=== PATIENT | female | born 1995 ===

== ENCOUNTER 2024-02-02 07:22 | Inpatient (IN) ==
[2024-02-02] MEDS ORDERED: LACTATED RINGER'S 1,000 ML IV PRN (08:39)
[2024-02-02] MEDS ORDERED: LIDOCAINE 1% LOCAL 20 ML VIAL INFIL PRN (08:39)
[2024-02-02] MEDS ORDERED: OXYTOCIN 30 UNITS/NSS 30 UNITS/500 ML BAG IV PRN (08:39)
--- NOTE | 2024-02-02 09:04 | History & Physical Report ---
Date of Service February 02, 2024 Assessment & Plan (1) Encounter for induction of labor: Present on Admission?: Yes Plan Admit to L and D Regular diet x 2 then NPO/IV Fluids CBC, CHEM 7 pain meds including epidural as the pt desires Cervidil placed PV for cervical ripening then consider Pitocin AROM as needed to augment labor Admission and Anticipated Discharge Date Admission Date: February 02, 2024 History of Present Illness Chief Complaint: IUP@ 38 weeks 4 days Induction of labor for gestational HTN Primary Care Provider: Adryan Cr MD Pt is 28 yr old G1 IUP at 38 weeks 4 days came in for IOL for Chronic HTN. Pt denies vaginal bleeding, leaking of fluid per vagina, head aches, blurry vision, epigastric pain etc. Reports good movement. Allergies Allergy/AdvReac Type Severity Reaction Status Date / Time No Known Allergies Allergy Verified 12/25/23 22:50 Home Medications Medication Instructions Recorded Confirmed Type aspirin 81 mg tablet,delayed 81 mg PO DAILY 11/15/23 02/02/24 History release magnesium 100 mg capsule 100 mg PO DAILY 11/15/23 02/02/24 History vit no.95-ferrous 1 tab PO DAILY 11/15/23 02/02/24 History fumarate 28 mg-folic acid 800 mcg tablet () Patient History Medical History Migraine Surgical History H/O lumpectomy 2012 History of tonsillectomy Family History Father History of bowel resection Hypertension Diabetes Grandmother (Paternal) Cancer Grandmother (Maternal) Cancer Social History Smoking Status: Never smoker Hx Alcohol Use: No Hx Substance Use: No Preferred Language: Latvian Communication Ability: Effective Inspector Assemblies And Installations Required: No Beliefs That Will Affect Care: None marital status: Current Living Situation: Spouse Other Information That Helps Us Care for You: No Feels Safe at Home: Yes Safety Concerns: Feels Safe At This Time Review of Systems All systems reviewed & are unremarkable except as noted in HPI & below as per Subjective / HPI as per Subjective / HPI as per Subjective / HPI Physical Exam Constitutional: WD/WN, vitals as above Respiratory: normal respiratory effort, lungs clear to auscultation Cardiovascular: RRR, no murmur, no edema Gastrointestinal (Abdomen): normal bowel sounds, soft, nontender, no hepatosplenomegaly Genitourinary: no vaginal lesions, no adnexal mass OB Exam Abdomen: + fundal height (38 cm) Manual OB Exam: + cervical dilation fingertip, + cervical effacement 20% and + station high OB Exam Monitor Tracing: + external FHT monitor used, + category I and + normal FHT variability 140s, Good variability, positive acceler ations Results & Data Vital Signs (Past 12 Hours) Vital Signs Temp Pulse Resp BP 02/02/24 07:55 36.6 C 20 02/02/24 07:43 90 132/91 Supervising Physician Co-Signing Physician Notes Dr. Kaylene Bush MD
[2024-02-02 09:05] LABS: Hematocrit (blood only) 38.7 % (37.0-47.0); Hemoglobin 13.2 g/dl (12.0-16.0); Mean Corpuscular Hemoglobin 31.1 pg (25.0-34.0); Mean Corpuscular Hgb Conc 34.1 g/dL (32.0-36.0); Mean Corpuscular Volume 91.3 fL (80.0-100.0); Mean Platelet Volume 10.7 fL (9.4-12.4); Platelet Count 220 K/uL (130-400); RDW Coefficient of Variation 13.3 % (11.5-14.5); RDW Standard Deviation 44.2 fL (36.4-46.3); Red Blood Count 4.24 M/uL (4.20-5.40); White Blood Count 10.47 K/ul (4.8-10.8)
[2024-02-02 09:20] LABS: Albumin Globulin Ratio 1.2 (0.9-2); Albumin Level 3.5 gm/dl (3.4-5.0); BUN Creatinine Ratio 6.9 (10-20); Bilirubin Direct 0.1 mg/dl (0-0.2); Bilirubin,Total 0.4 mg/dl (0.2-1.0); Calcium 8.8 mg/dl (8.6-10.3); Creatinine Clr Calc Pharmacy 193.1 ml/min; Est GFR (African American) 143.4 ml/min; Est GFR (Non-African American) 123.7 ml/min; Potassium 3.8 mmol/L (3.5-5.1); Total Protein 6.5 gm/dl (6.0-8.3)
[2024-02-02] MEDS: DINOPROSTONE 10 MG INSERT PV ONE (09:28)
[2024-02-02] MEDS: CALCIUM CARBONATE 500 MG CHEWABLE TAB PO PRN (10:52)
--- OUTSIDE RECORDS SUMMARY | 2024-02-02 15:57 | External Medical Summary | Summary of Care ---
Author Name Unknown Organization [facility] Address [address] [place] [address] Phone [phone] Care Team Providers Care Program Manufacturing Leader Name Role Phone Elizabeth RIVAS MD, Rolan Cardoso Primary Care Provider Reason for Visit * Reason Comments Return Visit Non Stress Test Encounter Details Date Type Department Care Team (Late st Contact Info) Description 01/31/2024 11:15 AM EDT Office Visit Gynecology/Obstetric s [facility] [address] [place] [address] Kristine Orellana CRNP [address] [place] [address] Igor Non Stress Tests [facility] [address] [place] [address] Encounter for supervision of normal first in third trimester*; Obesity in , antepartum; History of migraine during ; Rubella non-immune status, antepartum; Gestational hypertension without significant proteinuria in third trimester Allergies No known active allergiesdocumented as of this encounter (statuses as of 01/31/2024) Medications Medication Sig Dispensed Refills Start Date End Date Status 6.75-0.2 MG Oral Tablet Take by mouth. 0 Active Aspirin 81 MG Oral Tablet ChewableIndications:E ncounter for supervision of normal first in second trimester,Obesity in , antepartum Take 1 Tablet by mouth in the morning. 90 Tablet 2 08/17/2023 Active Magnesium 250 MG Oral Tablet Take 1 Tablet by mouth in the morning. 0 Active Breast PumpIndications:Charla malhotra for supervision of normal first in third trimester Pump daily while breast feeding 1 Each 0 12/25/2023 Active documented as of this encounter (statuses as of 01/31/2024) Active Problems Problem Noted Date Diagnosed Date Gestational hypertension without significant pro teinuria 01/31/2024 Rubella non-immune status, antepartum 07/20/2023 , normal first 07/19/2023 Obesity in , antepartum 07/19/2023 Overview: - Class 2: early GTT WNL - growth q4 wks, NST 37 weeks History of migraine during 07/19/2023 Sinus congestion 06/21/2023 Migraines 04/27/2022 Estimated Date of Delivery Comme nts Yes 02/10/2024 Based on last me nstrual period of 05/06/2023 (Exact Date) documented as of this encounter (statuses as of 01/31/2024) Resolved Problems Problem Noted Date Diagnosed Date Resolved Date Less than 8 weeks gestation of 06/21/2023 07/19/2023 documented as of this encounter (statuses as of 01/31/2024) Immunizations Name Administration Dates Next Due COVID-19 mRNA, LNP-s, No Pre serve, 2-Dose Series (Moderna) 03/22/2021,02/04/2021 DTaP Dipth/Tet/Acell Pertussis (Infanrix), Peds 06/10/1999,06/01/1995,07/04/1994,04/01,02/04/1994 HIB PRP-T, 4 dose (ActHib) 03/02/1995,,04/01/1994,02/04 HPV Vaccine, 4-Valent 12/08/2008,08/05/2008,05/2008 Hep A - Hepatitis A (ped/ado le, 1-18 Yrs) 12/08/2008,05/19/2008 Hepatitis B, 0-19 yrs 07/04/1994,01/04/1994,11/14 IPV - Polio Virus Vaccine (Inact) 1994,06/01/1994,04/01/1994,02/04 MMR - Measles/Mumps/Rubella Vaccine 06/03/1995,0 03/02/1995 Meningococcal MCV4O Conjugat e Vaccine (Menveo) 04/19/2012 Meningococcal MCV4P Conjugat e Vaccine (Menactra) 05/19/2008 PPD 03/08/2022,03/03/2021,02/09/2021 Seasonal Influenza, PF, 6 M & above, IM , (FluLaval or Fluzone) 08/17/2023,09/07/2022 Seasonal Influenza, Quadriva lent, No Preserve, IM 08/12/2021,08/24/2020 TD, Preservative Free 04/22/2021,05/30/2005 TDAP (age 10 and older)(Boostrix) 11/24/2023, Varicella Vaccine (Chicken Pox) 05/17/2007,02/06 documented as of this encounter Social History Tobacco Use Types Packs/Day Years Used Date Smoking Tobacco: Never Smokeless Tobacco: Never Alcohol Use Standard Drinks/Week Comments Not Currently 0 (1 standard drink = 0.6 oz pur e alcohol) socially PHQ-2 Answer Date Recorded PHQ-2 Score 0 12/23/2019 Hunger Vital Sign Answer Date Recorded Within the past 12 months, y ou worried that your food would run out before you got the money to buy more. Never true 07/19/20 23 Within the past 12 months, t he food you bought just didn't last and you didn't have money to get more. Never true 07/19/2023 Hamer Depression Scale Answer Date Recorded Hamer Depression Scale Total 4 12/25/2023 The thought of harming myself has occurred to me . Never 12/25/2023 Estimated Date of Delivery Comme nts Yes 02/10/2024 Based on last me nstrual period of 05/06/2023 (Exact Date) Sex and Gender Information Value Date Recorded Sex Assigned at Female 04/19/2019 8:47 AM EDT Gender Identity Female 04/19/2019 8:47 AM EDT Sexual Orientation Straight 04/19/2019 8: 47 AM EDT Job Start Date Occupation Industry Not on file Not on file Not on file documented as of this encounter Last Filed Vital Signs Vital Sign Reading Time Taken Comments Blood Pressure 130/88 01/31/2024 11:51 AM EDT Pulse - - Temperature - - Respiratory Rate - - Oxygen Saturation - - Inhaled Oxygen Concentration - - Weight - - Height - - Body Mass Index - - documented in this encounter Progress Notes * Esteban Kristine AltmanJHONATAN - 01/31/2024 11:17 AM EDT 38w4d Was seen in L&D on 01/28, reports BPs around 140s/90s at that time. BP yesterday slightly elevated at 140/88, 2+ protein in urine dip. Normal P/C ratio. Mild elevationin ALT, otherwise preE labs normal from yesterday. +MEJÍA today, not too bad; took 1g of Tylenol before coming into the office. No vision changes, epigastric/RUQ pain. Baby is moving well. Denies ctx, LOF, bleeding. Normal growth scan on 01/23. Discussed risks of GHTN, including uteroplacental insufficiency and preE. Induction is on 02/01; call sooner prn. Component Latest Ref Rng 01/30/2024 WBC 4.00 - 10.80 K/uL 9.68 RBC 3.85 - 5.15 M/uL 4.05 HGB 12.0 - 15.3 g/dL 12.5 HCT 36.0 - 45.2 % 37.2 MCV 81.5 - 97.5 fL 91.9 MCH 27.0 - 34.0 pg 30.9 MCHC 32.0 - 36.0 g/dL 33.6 RDW 11.5 - 15.5 % 13.5 PLT 140 - 400 K/uL 215 MPV 6.6 - 11.1 fL 10.8 BUN 6 - 20 mg/dL 5 (L) Creatinine 0.5 - 1.0 mg/dL 0.7 Estimated Glomerular Filtration Rate >=60 mL/min >90 Sodium 135 - 146 mmol/L 137 Potassium 3.5 - 5.1 mmol/L 4.0 Chloride 98 - 107 mmol/L 104 CO2 22 - 32 mmol/L 22 Anion Gap 7 - 15 mmol/L 11 Glucose 70 - 120 mg/dL 83 Calcium 8.4 - 10.2 mg/dL 9.3 Albumin 3.8 - 5.0 g/dL 3.4 (L) AST 10 - 35 U/L 25 Alkaline Phosphatase 35 - 130 U/L 163 (H) ALT 10 - 35 U/L 37 (H) Bilirubin, Total <=1.2 mg/dL 0.3 Bilirubin, Direct 0.0 - 0.3 mg/dL <0.2 Protein 6.0 - 8.3 g/dL 5.9 (L) Protein/ Creatinine Ratio, Urine <150 mg/g 114 Protein, Random Urine mg/dL 16 Creatinine, Random Urine mg/dL 140 Legend: (L) Low (H) High ASSESSMENT assessment with Non-stress Test completed on 01/31/2024 at 38.4 weeks gestation for indicationof obesity, GHTN. heart baseline: 140 bpm Variability: Moderate Decelerations: absent Accelerations: present Contractions: None NST start time: 1110 NST stop time: 1143 NST strip reviewed, interpreted, and approved by OB provider, JHONATAN Gomez . NST strip stored in clinic storage file documented in this encounter Plan of Treatment Scheduled Orders Name Type Priority Associated Diagnoses Orde r Schedule URINALYSIS, POINT OF CARE (ENTER/EDIT) Point of Care Testing Routine Encounter for supervision of normal first in third trimester Ordered: 01/31/2024 Health Maintenance Due Date Last Done Comments Depression Screening 12/23/2020 12/23/2019 COVID-19 Vaccine ( season) 2023 03/22/2021, 02/04/2021 HPV/Co-Test 2023 Cervical Cancer Screening 05/12/2026 Pap Smear 05/12/2026 05/12/2023, 12/23/2019 DTaP,Tdap,and Td Vaccines (9 - Td or Tdap) 11/24/2033 11/24/2023, 04/22/2021, 11/29/2010, Additional history exists Hepatitis B Completed 07/04/1994, 12/15, 1993 GARDASIL-HPV IMMUNIZATION SERIES Completed 12/08/2008, 08/05/2008, 05/19/2008 MENINGOCOCCAL (MENACTRA/MENVEO) Completed 04/19/2012, 05/19/2008 Influenza Vaccine (FLU shot) Completed 03/2023, 08/17/2023, 09/07/2022, Additional history exists Pneumococcal Vaccine: Pediatrics (0 to 5 Years) and At-Risk Patients (6 to 64 Years) Aged Out No longer eligible based on patient's age to complete this topic documented as of this encounter Medical Devices Not on filedocumented as of this encounter Visit Diagnoses Diagnosis Encounter for supervision of normal first in third trimester- Primary Supervision of normal first Obesity in , antepartum Obesity complicating , childbirth, or the puerperium, antepartum condition or complication History of migraine during Supervision of other high-risk Rubella non-immune status, antepartum Other specified complication, antepartum Gestational hypertension without significant proteinuria in third trimester Transient hypertension of , antepartum documented in this encounter Care Teams Program Manufacturing Leader Relationship Specialty Start Date End Date Rolan Johnson III, MD [address] [facility] [place] [address] PCP - General Family Medicine 04/19/19 documented as of this encounter
--- OUTSIDE RECORDS SUMMARY | 2024-02-02 15:57 | External Medical Summary | Summary of Care ---
Author Name Unknown Organization [facility] Address [address] [place] [address] Phone [phone] Care Team Providers Care Grinder Set Up Operator Jig Name Role Phone Elizabeth RIVAS MD, Rolan Cardoso Primary Care Provider [phone] Reason for Visit * Reason Comments Outpatient Testing Encounter Details Date Type Department Care Team (Late st Contact Info) Description 01/30/2024 11:00 AM EDT Laboratory Laboratory, [facility] [address] [facility] [place] [phone] [facility] [address] [place] [address] Elevated blood pressure, situational Allergies No known active allergiesdocumented as of this encounter (statuses as of 01/30/2024) Medications Medication Sig Dispensed Refills Start Date [...] mouth in the morning. 0 Active Breast PumpIndications:Encou nter for supervision of normal first in third trimester Pump daily while breast feeding 1 Each 0 12/25/2023 Active documented as of this encounter (statuses as of 01/30/2024) Active Problems Problem Noted Date Diagnosed Date Rubella non-immune status, antepartum 07/20/2023 , normal [...] as of this encounter (statuses as of 01/30/2024) Resolved Problems Problem Noted Date Diagnosed Date Resolved Date Less than 8 weeks gestation of 06/21/2023 07/19/2023 documented as of this encounter (statuses as of 01/30/2024) Immunizations Name Administration Dates Next Due COVID-19 mRNA, LNP-s, No Pre serve, 2-Dose Series (Moderna) 03/22/2021,02/04/2021 DTaP Dipth/Tet/Acell Pertussis (Infanrix), Peds 06/10/1999,06/01/1995,07/04/1994,04/01,02/04/1994 HIB PRP-T, 4 dose (ActHib) 03/02/1995,,04/01/1994,02/04 HPV Vaccine, 4-Valent 12/08/2008,08/05/2008,0705/2008 Hep A - Hepatitis A (ped/ado le, [...] money to get more. Never true 07/19/2023 [place] Depression Scale Answer Date Recorded [place] Depression Scale Total 4 12/25/2023 The thought [...] on file documented as of this encounter Plan of Treatment Upcoming Encounters Date Type Department Care Team (Late st Contact Info) Description 01/31/2024 11:15 AM EDT Office Visit Gynecology/Obstetrics [facility] [address] [place] [address] Kristine Orellana CRNP [address] [place] [address] Igor, Non Stress Tests [facility] [address] [place] [address] 02/07/2024 11:15 AM EDT Office Visit Gynecology/Obstetrics [facility] [address] [place] [address] Backer, JHONATAN Calderón [address] [place] [address] Igor, Non Stress Tests [facility] [address] [place] [address] Pending Results Name Type Priority Associated Diagnoses Date /Time HEPATIC FUNCTION PANEL Lab Routine Elevated blood pressure, situational 01/30/2024 10:38 AM EDT BASIC METABOLIC PANEL Lab Routine Elevated blood pressure, situational 01/30/2024 10:38 AM EDT Health Maintenance Due Date Last Done Comments Depression Screening 12/23/2020 12/23/2019 COVID-19 Vaccine (2022- season) 2023 03/22/2021, 02/04/2021 HPV/Co-Test 2023 Cervical [...] as of this encounter Visit Diagnoses Diagnosis Elevated blood pressure, situational Elevated blood pressure reading without diagnosis of hypertension documented in this encounter Care Teams Grinder Set Up Operator Jig Relationship Specialty Start Date End Date Rolan Johnson III, MD [address] [facility] [place] [address] PCP - General Family Medicine 04/19/19 documented as of this encounter
--- OUTSIDE RECORDS SUMMARY | 2024-02-02 15:57 | External Medical Summary | Summary of Care ---
Author Name Unknown Organization [facility] Address [address] [place] [address] Phone [phone] Care Team Providers Care Sheet Metal Installer Name Role Phone Elizabeth RIVAS MD, Rolan Cardoso Primary Care Provider [phone] Encounter Details Date Type Department Care Team (Late st Contact Info) Description 01/30/2024 10:00 AM EDT Nurse Only Gynecology/Obstetrics [facility] [address] [facility] [place] [address] Gw, Nurse [facility]gyn Injection [address] [facility] [place] [address] Arrived Allergies No known active allergiesdocumented as of [...] money to get more. Never true 07/19/2023 [place]ard Depression Scale Answer Date Recorded [place] Depression Scale Total 4 12/25/2023 The thought [...] on file documented as of this encounter Nursing Notes * Raymond Pepe LPN - 01/30/2024 10:30 AM EDT Pt came in today for BP check Bp in office today was 140/88 +2 protein in urine Pt denies any MEJÍA' vision changes, lof, vb or decreased movements Pt was at [facility] yesterday for elevated BP Per Dr. Stone pt needs lft, bmp and urine protein done today and come back tomorrow for repeat BP. I also instructed pt if she has any MEJÍA's, vision changes, lof, vb, decreased movement to call the office right away. Pt verbalized understanding Per pt she is scheduled for IOL 02/01 per megha from yesterday I called [facility] and confirmed she is scheduled for this day documented in this encounter Miscellaneous Notes * Addendum Note - Raymond Pepe LPN - 01/30/2024 10:35 AM EDTAddended by: RAYMOND PEPE on: 01/30/2024 10:35 AM Modules accepted: Orders documented in this encounter Plan of Treatment Upcoming Encounters Date Type Department Care Team (Late st Contact Info) Description 01/30/2024 11:00 AM EDT [facility] [address] [place] [phone] [facility] [address] [place] [address] Elevated blood pressure, situational 01/31/2024 11:15 AM EDT Office Visit Gynecology/Obstetric s [facility] [address] [place] [address] BackKristine gannon CRNP [address] [place] [address] Igor Non Stress Tests [facility] [address] [place] [address] 02/07/2024 11:15 AM EDT Office Visit Gynecology/Obstetric s [facility] [address] [place] [address] Kristine Orellana CRNP [address] [place] [address] [place], Non Stress Tests [facility] [address] [place] [address] Pending Results Name Type Priority Associated Diagnoses Date /Time HEPATIC FUNCTION PANEL Lab Routine Elevated blood pressure, situational 01/30/2024 10:38 AM EDT BASIC METABOLIC PANEL Lab Routine Elevated blood pressure, situational 01/30/2024 10:38 AM EDT PROTEIN/ CREATININE RATIO, URINE Lab Routine Elevated blood pressure, situational 01/30/2024 10:34 AM EDT CBC Lab Routine Elevated blood pressure, situational 01/30/2024 10:38 AM EDT Scheduled Orders Name Type Priority Associated Diagnoses Orde r Schedule HEPATIC FUNCTION PANEL Lab Routine Elevated blood pressure, situational Expected: 01/30/2024, Expires: 01/29/2025 BASIC METABOLIC PANEL Lab Routine Elevated blood pressure, situational Expected: 01/30/2024, Expires: 01/29/2025 Health Maintenance Due Date Last Done Comments [...] encounter Visit Diagnoses Diagnosis Elevated blood pressure, situational- Primary Elevated blood pressure reading without diagnosis of hypertension Elevated blood pressure, situational Elevated blood pressure reading without diagnosis of hypertension documented in this encounter Care Teams Sheet Metal Installer Relationship Specialty Start Date End Date Rolan Johnson III, MD [address] [facility] [place] [address] PCP - General Family Medicine 04/19/19 documented as of this encounter
--- OUTSIDE RECORDS SUMMARY | 2024-02-02 15:58 | External Medical Summary | Summary of Care ---
Author Name Unknown Organization [facility] Address [address] [place] [address] Phone [phone] Care Team Providers Care Assessment Nurse Name Role Phone Elizabeth RIVAS MD, Rolan Cardoso Primary Care Provider [phone] Encounter Details Date Type Department Care Team (Late st Contact Info) Description 01/30/2024 10:00 AM EDT Nurse Only Gynecology/Obstetrics [facility] [address] [facility] [place] [address] Gw, Nurse Obgyn Injection [address] [facility] [place] [address] Arrived Allergies No known active allergiesdocumented as [...] money to get more. Never true 07/19/2023 [place] Depression Scale Answer Date Recorded [place] Depression Scale Total 4 12/25/2023 The thought [...] as of this encounter Nursing Notes * Ashlyn Rossi LPN - 01/30/2024 10:30 AM EDT Pt came in today for BP check Bp in office today was 140/88 +2 protein in urine Pt denies any MEJÍA' vision changes, lof, vb or decreased movements Pt was at [facility] yesterday for elevated BP Per Dr. Stone pt needs lft, bmp and urine protein done today and come back tomorrow for repeat BP. I also instructed pt if she has any MEJÍA's, vision changes, lof, vb, decreased movement to call the office right away. Pt verbalized understanding Per pt she is scheduled for IOL 02/01 per megha from yesterday I called [facility] and confirmed she is scheduled for this day documented in this encounter Plan of Treatment Upcoming Encounters Date Type Department Care Team (Late st Contact Info) Description 01/30/2024 11:00 AM EDT [facility] [address] [place] [phone] [facility] [address] [place] [address] Arrived 01/31/2024 11:15 AM EDT Office Visit Gynecology/Obstetrics [facility] [address] [place] [address] Kristine Orellana CRNP [address] [place] [address] Igor Non Stress Tests [facility] [address] [place] [address] 02/07/2024 11:15 AM EDT Office Visit Gynecology/Obstetrics [facility] [address] [place] [address] Kristine Orellana CRNP [address] [place] [address] Igor Non Stress Tests [facility] [address] [place] [address] Pending Results Name Type Priority Associated Diagnoses Date /Time PROTEIN/ CREATININE RATIO, URINE Lab Routine Elevated blood pressure, situational 01/30/2024 10:34 AM EDT Scheduled Orders Name Type Priority Associated Diagnoses Orde r Schedule HEPATIC FUNCTION PANEL Lab Routine Elevated blood pressure, situational Expected: 01/30/2024, Expires: 01/29/2025 BASIC METABOLIC PANEL Lab Routine Elevated blood pressure, situational Expected: 01/30/2024, Expires: 01/29/2025 Health Maintenance Due Date Last Done Comments Depression Screening 12/23/2020 12/23/2019 COVID-19 Vaccine (3 - 2022-24 season) 2023 03/22/2021, 02/04/2021 HPV/Co-Test 2023 Cervical [...] hypertension documented in this encounter Care Teams Assessment Nurse Relationship Specialty Start Date End Date Rolan Johnson III, MD [address] [facility] [place] [address] PCP - General Family Medicine 04/19/19 documented as of this encounter
--- OUTSIDE RECORDS SUMMARY | 2024-02-02 15:58 | External Medical Summary | Summary of Care ---
Author Name Unknown Organization [facility] Address [address] [place] [address] Phone [phone] Care Team Providers Care Chairman Name Role Phone Elizabeth RIVAS MD, Rolan Cardoso Primary Care Provider [phone] Encounter Details Date Type Department Care Team (Late st Contact Info) Description 01/29/2024 Orders Only Gynecology/Obstetrics [facility] [address] [place] [address] BackKristine gannon CRNP [address] [place] [address] Allergies No known active allergiesdocumented as of this encounter (statuses as of 01/29/2024) Medications Medication Sig Dispensed Refills Start Date [...] as of this encounter (statuses as of 01/29/2024) Active Problems Problem Noted Date Diagnosed Date [...] as of this encounter (statuses as of 01/29/2024) Resolved Problems Problem Noted Date Diagnosed Date Resolved Date Less than 8 weeks gestation of 06/21/2023 07/19/2023 documented as of this encounter (statuses as of 01/29/2024) Immunizations Name Administration Dates Next Due COVID-19 [...] money to get more. Never true 07/19/2023 [place] Depression Scale Answer Date Recorded [place] Depression Scale Total 4 12/25/2023 The thought [...] Visit Gynecology/Obstetrics Warren Costa [address] [place] [address] Kristine Orellana CRNP [address] [place] [address] Janie Costa Stress Tests [place] [address] [place] [address] 02/07/2024 11:15 AM EDT Office Visit Gynecology/Obstetrics Warren Costa [address] [place] [address] Backer, KristineJHONATAN Wheat [address] [place] [address] Igor, Non Stress Tests [place] [address] [place] [address] Health Maintenance Due Date Last Done Comments [...] Not on filedocumented as of this encounter Procedures Procedure Name Priority Date/Time Associated Diagnosis Comments CHEMISTRY-OUTSIDE Routine 01/29/2024 documented in this encounter Results * (ABNORMAL) CHEMISTRY-OUTSIDE (01/29/2024) Not all results display below - see scan for full detail OUTSIDE LAB (SEE SCANNED REPORT) Comment:SEE SACN; URPCR, CMP , CBCD CREATININE-OUTSID E LAB 0.52(L) 0.6 - 1.2 ML/MIN/1.7 3M2 OUTSIDE LAB (SEE SCANNED REPORT) EGFR-OUTSIDE LAB 128.2 ML/MIN/1.7 3M2 OUTSIDE LAB (SEE SCANNED REPORT) POTASSIUM-OUTSIDE LAB 3.6 3.5 - 5.1 MMOL/L OUTSIDE LAB (SEE SCANNED REPORT) GLUCOSE-OUTSIDE LAB 111(H) 70 - 99 MG/DL OUTSIDE LAB (SEE SCANNED REPORT) HOURS FASTING OUTSID E LAB (SEE SCANNED REPORT) TRIGLYCERIDES-OUT SIDE LAB OUTSIDE LAB (SEE SCANNED REPORT) CHOLESTEROL-OUTSI DE LAB OUTSIDE LAB (SEE SCANNED REPORT) HDL-OUTSIDE LAB OUTS [facility] (SEE SCANNED REPORT) CHOL/HDL RATIO-OUTSIDE LAB OUTSIDE LA B (SEE SCANNED REPORT) LDL (CALCULATED)-OUTS [facility] OUTSIDE LAB (SEE SCANNED REPORT) LDL (DIRECT MEASURE)-OUTSIDE LAB OUTSIDE LAB (SEE SCANNED REPORT) HEMOGLOBIN, H2V-YIKZDZY LAB OUTSIDE LAB (SEE SCANNED REPORT) PHOSPHORUS-OUTSID E LAB OUTSIDE LAB (SEE SCANNED REPORT) PTH-OUTSIDE LAB OUTS [facility] (SEE SCANNED REPORT) MICROALBUMIN RATIO-OUTSIDE LAB OUTSIDE LA B (SEE SCANNED REPORT) PROTEIN, UA-OUTSIDE LAB OUTSIDE LAB (SEE SCANNED REPORT) HGB 12.6 12.0 - 16.0 G/DL OUTSIDE LAB (SEE SCANNED REPORT) 01/29/2024 Priya Garrison MD LABORATORY OUTSIDE LAB (SEE SCANNED REPORT) documented in this encounter Care Teams Chairman Relationship Specialty Start Date End Date Rolan Johnson III, MD [address] [place] [address] PCP - General Family Medicine 04/19/19 documented as of this encounter
--- OUTSIDE RECORDS SUMMARY | 2024-02-02 15:58 | External Medical Summary ---
Author Name Unknown Address Unknown Organization [id number]:LABORATORY [facility] [address] - [address] [place] [address] Laboratory Report Ordering Provider Test Date Status DESMOND OBANDO 01/30/2024 10:38:16 Final Observation Date Value Abnormality Reference (Units ) Status BUN 01/30/2024 10:38:16 5 Below low normal 6-20 (mg/dL) Final Creatinine 01/30/2024 10:38:16 0.7 0.5-1.0 (mg/dL) Final Glomerular filtration rate/1.73 sq M.predicted [Volume Rate/Area] in Serum, Plasma or Blood by Creatinine-based formula (CKD-EPI) 01/30/2024 10:38:16 >90 >=60 (mL/min) Final eGFR is calculated based on the CKD-EPI 2020 equation SODIUM 01/30/2024 10:38:16 137 135-146 (m mol/L) Final Potassium 01/30/2024 10:38:16 4.0 3.5-5.1 (m mol/L) Final Cl 01/30/2024 10:38:16 104 98-107 (mm ol/L) Final CO2 01/30/2024 10:38:16 22 22-32 (mmo l/L) Final Anion gap 01/30/2024 10:38:16 11 7-15 (mmol /L) Final Glucose 01/30/2024 10:38:16 83 70-120 (mg /dL) Final Calcium 01/30/2024 10:38:16 9.3 8.4-10.2 ( mg/dL) Final Performing Location LABORATORY [facility] [address] - [address] [place] [id number]
--- OUTSIDE RECORDS SUMMARY | 2024-02-02 15:58 | External Medical Summary | Summary of Care ---
Author Name Unknown Organization [facility] Address [address] [place] [address] Phone [phone] Care Team Providers Care Herbicide Service Sales Representative Name Role Phone Elizabeth RIVAS MD, Rolan Cardoso Primary Care Provider [phone] Encounter Details Date Type Department Care Team (Late st Contact Info) Description 01/29/2024 Result Scan Unspecified Department Priya Powell MD [address] [place] [address] <No scans attached> Allergies No known active allergiesdocumented as of [...] money to get more. Never true 07/19/2023 [place] Depression Scale Answer Date Recorded [place] Depression Scale Total 4 12/25/2023 The thought [...] 01/30/2024 10:00 AM EDT Nurse Only Gynecology/Obstetrics Warren Costa [address] [place] [address] Gw, Nurse Obgyn Injection [address] [place] [address] 01/31/2024 11:15 AM EDT Office Visit Gynecology/Obstetrics Warren Costa [address] [place] [address] Kristine Orellana CRNP [address] [place] [address] Igor Non Stress Tests [place] [address] [place] [address] 02/07/2024 11:15 AM EDT Office Visit Gynecology/Obstetrics Warren Costa [address] [place] [address] Kristine Orellana CRNP [address] [place] [address] Costa, Non Stress Tests [place] [address] [place] [address] Health Maintenance Due Date Last Done Comments Depression Screening 12/23/2020 12/23/2019 COVID-19 Vaccine (2022-24 season) 2023 03/22/2021, 02/04/2021 HPV/Co-Test 2023 Cervical [...] Procedure Name Priority Date/Time Associated Diagnosis Comments OUTSIDE LAB RESULTS 01/29/2024 documented in this encounter Results * OUTSIDE LAB RESULTS (01/29/2024) 01/29/2024 Priya Garrison MD LABORATORY documented in this encounter Care Teams Herbicide Service Sales Representative Relationship Specialty Start Date End Date Rolan Johnson III, MD [address] [facility] [place] [address] PCP - General Family Medicine 04/19/19 documented as of this encounter
--- OUTSIDE RECORDS SUMMARY | 2024-02-02 15:58 | External Medical Summary ---
Author Name Unknown Address Unknown Organization K0G:LABORATORY [facility] [facility] [address] - [address] [place] [address] Laboratory Report Ordering Provider Test Date Status DESMOND OBANDO 01/30/2024 10:38:16 Final Observation Date Value Abnormality Reference (Units ) Status WBC, Total 01/30/2024 10:38:16 9.68 4.00-10.8 0 (K/uL) Final RBC 01/30/2024 10:38:16 4.05 3.85-5.15 (M/uL) Final Hemoglobin 01/30/2024 10:38:16 12.5 12.0-15.3 (g/dL) Final HCT 01/30/2024 10:38:16 37.2 36.0-45.2 (%) Final MCV 01/30/2024 10:38:16 91.9 81.5-97.5 (fL) Final MCH 01/30/2024 10:38:16 30.9 27.0-34.0 (pg) Final MCHC 01/30/2024 10:38:16 33.6 32.0-36.0 (g/dL) Final RDW 01/30/2024 10:38:16 13.5 11.5-15.5 (%) Final Platelets 01/30/2024 10:38:16 215 140-400 (K /uL) Final MPV 01/30/2024 10:38:16 10.8 6.6-11.1 ( fL) Final Performing Location LABORATORY [facility] [address] - [address] [place] [address]
--- OUTSIDE RECORDS SUMMARY | 2024-02-02 15:58 | External Medical Summary ---
Author Name Unknown Address Unknown Organization K0G:LABORATORY [facility] [address] - [address] [place] [address] Laboratory Report Ordering Provider Test Date Status DESMOND OBANDO 01/30/2024 10:38:16 Final Observation Date Value Abnormality Reference (Units ) Status Albumin 01/30/2024 10:38:16 3.4 Below low normal 3.8-5.0 (g/dL) Final AST (Aspartate aminotransferase) 01/30/2024 10:38:16 25 10-35 (U/L) Final Alk Phos 01/30/2024 10:38:16 163 Above high normal 35-130 (U/L) Final ALT (Alanine aminotransferase) 01/30/2024 10:38:16 37 Above high normal 10-35 (U/L) Final Bilirubin, Total 01/30/2024 10:38:16 0.3 <=1.2 (mg/dL) Final Bilirubin, Direct 01/30/2024 10:38:16 <0.2 0.0-0.3 (mg/dL) Final Protein 01/30/2024 10:38:16 5.9 Below low normal 6.0-8.3 (g/dL) Final Performing Location LABORATORY [facility] [address] - [address] [place] [address]
--- OUTSIDE RECORDS SUMMARY | 2024-02-02 15:58 | External Medical Summary | Summary of Care ---
Author Name Unknown Organization [facility] Address [address] [place] [address] Phone [phone] Care Team Providers Care Hazmat Tanker Driver Name Role Phone Elizabeth RIVAS MD, Rolan Cardoso Primary Care Provider [phone] Encounter Details Date Type Department Care Team (Late st Contact Info) Description 01/30/2024 10:00 AM EDT Nurse Only Gynecology/Obstetrics [facility] [address] [facility] [place] [address] Gw, Nurse Obgyn Injection [address] [facility] [place] [address] Arrived Allergies No known active allergiesdocumented as [...] money to get more. Never true 07/19/2023 [place] Depression Scale Answer Date Recorded [place] Depression Scale Total 4 12/25/2023 The thought [...] vb or decreased movements Pt was at [facility] yesterday for elevated BP Per Dr. Stone pt needs lft, bmp and urine protein done today and come back tomorrow for repeat BP. I also instructed pt if she has any MEJÍA's, vision changes, lof, vb, decreased movement to call the office right away. Pt verbalized understanding Per pt she is scheduled for IOL 02/01 per megha from yesterday I called [facility] and confirmed she is scheduled for this day documented in this encounter Miscellaneous Notes * Addendum Note - Raymond Pepe LPN - 01/30/2024 10:35 AM EDTAddended by: RAYMOND PEPE on: 01/30/2024 10:35 AM Modules accepted: Orders documented in this encounter Plan of Treatment Upcoming Encounters Date Type Department Care Team (Late st Contact Info) Description 01/30/2024 11:00 AM EDT [facility] [address] [place] [address] Sunil Costa [address] [place] [address] Arrived 01/31/2024 11:15 AM EDT Office Visit Gynecology/Obstetrics Warren Costa [address] [place] [address] Kristine Orellana CRNP [address] [place] [address] Janie Costa Stress Tests [place] [address] [place] [address] 02/07/2024 11:15 AM EDT Office Visit Gynecology/Obstetrics Warren Costa [address] [place] [address] Kristine Orellana CRNP [address] [place] [address] Costa, Non Stress Tests [place] [address] [facility] [place] [address] Pending Results Name Type Priority Associated Diagnoses Date /Time PROTEIN/ CREATININE RATIO, URINE Lab Routine Elevated blood pressure, situational 01/30/2024 10:34 AM EDT Scheduled Orders Name Type Priority Associated Diagnoses Orde r Schedule HEPATIC FUNCTION PANEL Lab Routine Elevated blood pressure, situational Expected: 01/30/2024, Expires: 01/29/2025 BASIC METABOLIC PANEL Lab Routine Elevated blood pressure, situational Expected: 01/30/2024, Expires: 01/29/2025 CBC Lab Routine Elevated blood pressure, situational Ordered: 01/30/2024 Health Maintenance Due Date Last Done Comments [...] hypertension documented in this encounter Care Teams Hazmat Tanker Driver Relationship Specialty Start Date End Date Rolan Johnson III, MD [address] [place] [address] PCP - General Family Medicine 04/19/19 documented as of this encounter
--- OUTSIDE RECORDS SUMMARY | 2024-02-02 15:58 | External Medical Summary ---
Author Name Unknown Address Unknown Organization K01:LABORATORY [facility] - [address] [place] [address] [place] [address] Laboratory Report Ordering Provider Test Date Status TOPHERDESMOND 01/30/2024 10:34:59 Final Normal: <150 mg/ g creatinine
High: 150-500 mg/g creatinine
Very High: >500 mg/g creatinine
Nephrotic: >3000 mg/g creatinine Observation Date Value Abnormality Reference (Units ) Status Protein/Creatinine [Ratio] in Urine 01/30/2024 10:34:59 114 <150 (mg/g ) Final Protein, Urine 01/30/2024 10:34:59 16 (mg/dL) Final Creatinine, Urine 01/30/2024 10:34:59 140 (mg/dL) Final Performing Location LABORATORY [facility] - [address] [place] [address]
--- NOTE | 2024-02-03 06:54 | Labor Progress Brief Note ---
Date of Service February 03, 2024 Subjective Reason For Note: Routine Evaluation Assessment & Plan (1) Encounter for induction of labor: Plan consider Pitocin eventually to augment labor Admission and Anticipated Discharge Date Admission Date: February 02, 2024 Physical Exam Constitutional: WD/WN, vitals as above Genitourinary: OB Exam Abdomen: + heart tones (140s, good variability), + vertex and + regular contractions (q 4 min) Manual OB Exam: + cervical dilation fingertip, + cervical effacement 30% and + station high OB Exam Monitor Tracing: + external FHT monitor used and + category I cervidil removed Results & Data Vital Signs (Past 12 Hours) Vital Signs Temp Pulse Resp BP 02/03/24 03:03 36.8 C 83 18 117/60 02/02/24 22:58 73 02/02/24 22:58 134/84 02/02/24 22:57 18 02/02/24 22:57 36.8 C 18 02/02/24 19:03 88 02/02/24 19:03 143/90 H 02/02/24 19:01 18 02/02/24 19:01 36.9 C 18
[2024-02-03] MEDS: DINOPROSTONE 10 MG INSERT PV ONE (09:20)
--- NOTE | 2024-02-03 09:41 | Obstetrical Progress Note ---
Date of Service February 03, 2024 Assessment & Plan Admission and Anticipated Discharge Date Admission Date: February 02, 2024 Subjective Patient seen and examined. 28-year-old G1, P0 at 39 weeks of gestation who was admitted for induction of labor for gestational hypertension since yesterday. She has received 1 dose of Cervidil yesterday morning which was removed last night. She was having contractions regularly until this morning when they spaced out. She denies contractions, leakage of fluid, vaginal bleeding, abdominal pain. She denies headaches, change in her vision, nausea vomiting, epigastric or right upper quadrant pain. She reports good movements. Labs are within normal limits, blood pressures are stable. heart rate category 1, [place] mild irregular contractions every 7 to 8 minutes, patient does not feel them. Vaginal exam, cervix is posterior, high, thick, external os is fingertip internal os closed, head is ballotable. Bedside ultrasound is done confirmed vertex presentation. Discussed the findings with the patient and her family and options of continue with cervical ripening either p.o. Cytotec or another dose of Cervidil. After discussion patient decided for Cervidil. It was placed in posterior fornix without difficulty. All questions were answered. Continue to monitor. Results & Data Vital Signs (Past 12 Hours) Vital Signs Temp Pulse Resp BP 02/03/24 07:00 20 02/03/24 07:00 36.6 C 20 02/03/24 06:59 94 H 137/72 02/03/24 03:03 36.8 C 83 18 117/60 02/02/24 22:58 73 02/02/24 22:58 134/84 02/02/24 22:57 18 02/02/24 22:57 36.8 C 18
[2024-02-03] MEDS: BUTORPHANOL TARTRATE 2 MG/ML VIAL IV PRN (19:45)
--- NOTE | 2024-02-03 22:59 | Obstetrical Progress Note ---
Date of Service February 03, 2024 Assessment & Plan Admission and Anticipated Discharge Date Admission Date: February 02, 2024 Subjective Patient is reevaluated. She has been feeling contractions q 2-3 min, they were getting painful and she treceived Stadol for pain at 19:45. It helped for about 2 hours and she slept. She woke up with less intense and irregular contractions. Cervix is 1 cm/ thick/ -3, posterior We discussed option of Hester balloon insertion for mechanical dilatation with Oxytocin She accepted/ She was placed in dorsal lithotomy position and spekulum was placed ( longest) cervix was seen and cleaned with betadine. Hester tip was inserted but it does not go in enough to keep ballon inside, it comes out easily. Patient uncomfortable, unable to tolerate further trial FHR categ I Continue to monitor Will discuss options when she calms down. Results & Data Vital Signs (Past 12 Hours) Vital Signs Temp Pulse Resp BP 02/03/24 19:40 16 02/03/24 19:40 16 02/03/24 19:22 79 138/98 02/03/24 19:19 16 02/03/24 19:19 36.6 C 16 02/03/24 15:08 37.1 C 87 18 132/89 02/03/24 11:19 36.9 C 78 18 129/81
[2024-02-04] MEDS ORDERED: CALCIUM CARBONATE 500 MG CHEWABLE TAB PO PRN (00:08)
[2024-02-04] MEDS ORDERED: diphenhydrAMINE Capsule 25 MG CAP PO PRN (00:10)
--- NOTE | 2024-02-04 00:13 | Obstetrical Progress Note ---
Date of Service February 04, 2024 Assessment & Plan Admission and Anticipated Discharge Date Admission Date: February 02, 2024 Subjective Patient had more questions about Oxytocin vs Cytotec Discussed the difference and what to expect She prefers to ambulate Cervix is not favorable, posterior, high and firm After long discussion she decided to take shower and start PO Cytotec. Results & Data Vital Signs (Past 12 Hours) Vital Signs Temp Pulse Resp BP 02/04/24 00:08 69 143/81 H 02/03/24 19:40 16 02/03/24 19:40 16 02/03/24 19:22 79 138/98 02/03/24 19:19 16 02/03/24 19:19 36.6 C 16 02/03/24 15:08 37.1 C 87 18 132/89
[2024-02-04] MEDS: FLUCONAZOLE 50 MG TAB PO ONE (01:17)
[2024-02-04] MEDS: ACETAMINOPHEN 500 MG TAB PO PRN (01:19)
[2024-02-04] MEDS: miSOPROStoL 50 MCG TAB PO SCH (02:00)
--- NOTE | 2024-02-04 09:16 | Obstetrical Progress Note ---
Date of Service February 04, 2024 Assessment & Plan Admission and Anticipated Discharge Date Admission Date: February 02, 2024 Subjective Patient is seen and examined. She had 2 doses of PO Cytotec at 2 and 6 am, does not feel contractions, nor pain. VE: cervix is still high and posterior, patient is tensing up, unable to reach cervix. FHR categ I [place]: ctxs q 3-5 min, patient does not feel them Discussed the findings and options of either continuing with Cervical ripening with PG, or start Oxytocin and then epidural and insert Hester balloon, or expectant management for 1-2 days and come back for IOL, or Ceserean After long discussion of risks and benefits of each options, she decided to start Oxytocin and then Epidural, Hester Balloon All questions were answered. Plan to start Oxytocin at 10 am Continue to monitor closely. Results & Data Vital Signs (Past 12 Hours) Vital Signs Temp Pulse Resp BP 02/04/24 07:02 36.9 C 83 16 127/83 02/04/24 05:00 36.9 C 76 16 116/66 02/04/24 00:08 69 143/81 H
[2024-02-04] MEDS: LACTATED RINGER'S 1,000 ML IV SCH (10:18)
[2024-02-04] MEDS: OXYTOCIN 30 UNITS/NSS 30 UNITS/500 ML BAG IV PRN (10:50)
[2024-02-04 11:01] LABS: Basophils # (auto) 0.06 K/uL (0.00-0.20); Basophils % (auto) 0.6 %; Eosinophils # (auto) 0.13 K/uL (0.00-0.50); Eosinophils % (auto) 1.3 %; Hemoglobin 12.7 g/dl (12.0-16.0); Immature Granulocytes # (auto) 0.14 K/uL (0.01-0.20); Immature Granulocytes % (auto) 1.4 %; Lymphocytes # (auto) 2.31 K/uL (1.20-3.40); Lymphocytes % (auto) 22.3 %; Mean Corpuscular Hemoglobin 30.3 pg (25.0-34.0); Mean Corpuscular Hgb Conc 33.4 g/dL (32.0-36.0); Mean Corpuscular Volume 90.7 fL (80.0-100.0); Mean Platelet Volume 10.7 fL (9.4-12.4); Monocytes % (auto) 6.8 %; Neutrophils # (auto) 7.02 K/uL (1.40-6.50); Neutrophils % (auto) 67.6 %; Platelet Count 218 K/uL (130-400); RDW Coefficient of Variation 13.3 % (11.5-14.5); RDW Standard Deviation 43.9 fL (36.4-46.3); Red Blood Count 4.19 M/uL (4.20-5.40); White Blood Count 10.36 K/ul (4.8-10.8)
[2024-02-04 11:15] LABS: Albumin Globulin Ratio 1.2 (0.9-2); Albumin Level 3.4 gm/dl (3.4-5.0); BUN Creatinine Ratio 10.9 (10-20); Bilirubin,Total 0.5 mg/dl (0.2-1.0); Calcium 8.7 mg/dl (8.6-10.3); Creatinine Clr Calc Pharmacy 203.6 ml/min; Est GFR (African American) 145.9 ml/min; Est GFR (Non-African American) 125.9 ml/min; Globulin 2.8 gm/dl (2.5-4.0); Potassium 3.8 mmol/L (3.5-5.1); Total Protein 6.2 gm/dl (6.0-8.3)
[2024-02-04 11:41] LABS: Creatinine Urine Random 63.3 mg/dl; Protein Creatinine Ratio Urine 0.1 (0-0.2)
--- NOTE | 2024-02-04 12:32 | Obstetrical Progress Note ---
Date of Service February 04, 2024 Assessment & Plan Admission and Anticipated Discharge Date Admission Date: February 02, 2024 Subjective Patient is seen. She is sleeping Oxytocin is increased to 8 miu/min now FHR categ I Continue to monitor closely. Results & Data Vital Signs (Past 12 Hours) Vital Signs Temp Pulse Resp BP 02/04/24 11:59 69 16 118/62 02/04/24 10:49 36.9 C 78 18 124/68 02/04/24 07:02 36.9 C 83 16 127/83 02/04/24 05:00 36.9 C 76 16 116/66
--- NOTE | 2024-02-04 15:23 | Anesthesiology Consultation ---
Date of Service February 04, 2024 Assessment & Plan Chart Review Chart Review: Acceptable Risk for Labor Epidural Consults Requested none ASA ASA2 Proposed Anesthesia Anesthesia Type: Labor Epidural Risk / Benefits Reviewed With: PT / POA / Parent / Guardian, Accepts Plan and Informed Consent Obtained History Height/Weight Height: 5 ft 8 in Weight: 119.748 kg Allergies Allergy/AdvReac Type Severity Reaction Status Date / Time No Known Allergies Allergy Verified 12/25/23 22:50 Medications Home Medications Medication Instructions Recorded Confirmed Last Taken aspirin 81 mg tablet,delayed 81 mg PO DAILY 11/15/23 02/02/24 02/01/24 release magnesium 100 mg capsule 100 mg PO DAILY 11/15/23 02/02/24 02/01/24 vit no.95-ferrous 1 tab PO DAILY 11/15/23 02/02/24 02/01/24 fumarate 28 mg-folic acid 800 mcg tablet () Active Medications Generic Name Dose Route Start Last Admin Trade Name Freq PRN Reason Stop Dose Admin Acetaminophen 1,000 mg 02/04/24 00:10 02/04/24 07:05 Acetaminophen 500 Mg Tab PO 03/05/24 00:09 1,000 mg Q8H PRN Administration Pain Butorphanol Tartrate 1 mg 02/03/24 09:41 02/03/24 19:45 Butorphanol Tartrate 2 Mg/Ml Vial IV 03/04/24 09:40 1 mg Q3HWA PRN Administration Pain Oxytocin 30 units in 500 mls @ 12 mls/hr 02/04/24 09:08 02/04/24 14:00 Pitocin 30 Units/Nss IV 02/06/24 09:07 0.72 units/hr .Q24H PRN 12 mls/hr Labor Induction/Augmentation Titration Protocol 0.72 UNITS/HR Lactated Ringer's 1,000 mls @ 150 mls/hr 02/04/24 10:15 02/04/24 15:21 Lr IV 03/05/24 10:14 999 mls/hr .Q6H40M RAMSES Administration Misoprostol 50 mcg 02/04/24 00:10 02/04/24 14:59 Misoprostol 50 Mcg Tab PO 03/05/24 00:09 Not Given Q4 RAMSES Past Medical History Medical History Migraine Exercise / Class Metabolic Activity II 4-5 Yardwork/Stairs/Walk up hill Past Family History Family History Father History of bowel resection Hypertension Diabetes Grandmother (Paternal) Cancer Grandmother (Maternal) Cancer Past Surgical History Surgical History H/O lumpectomy 2012 History of tonsillectomy Past Anesthesia History No Hx of Anesthesia Complications and No Family Hx of Anesthesia Complications History of PONV No Hx of PONV and No Hx of Motion Sickness Social History Smoking Status: Never smoker Hx Alcohol Use: No Hx Substance Use: No Physical Exam Vital Signs Last Vital Signs Temp 98.4 F 02/04/24 10:49 Pulse 78 02/04/24 14:00 Resp 18 02/04/24 14:00 BP 134/82 02/04/24 14:00 ENMT Mouth: no dentition abnormality Thyromental Distance: > or= 3.5 Finger Breadths Mallampati Class: II Neck normal visual inspection Respiratory normal respiratory effort Auscultation: lungs clear to auscultation bilaterally Cardiovascular Rate/Rhythm: regular rate and regular rhythm Testing Laboratory Results 02/04/24 10:37 02/04/24 10:37 Blood Type O Positive 02/04/24 10:37 Antibody Screen NEGATIVE 02/04/24 10:37
[2024-02-04] MEDS: fentANYL 2 MCG/ML BUPIVacaine 0.125%-NSS 100ML BAG ONE (15:40)
[2024-02-04] MEDS ORDERED: NALOXONE HCL 1 MG in SODIUM CHLORIDE 0.9% 1,000 ML IV PRN (15:43)
[2024-02-04] MEDS ORDERED: NALBUPHINE HCL 5 MG in SYRINGE 0 ML IV PRN (15:43)
[2024-02-04] MEDS ORDERED: NALOXONE HCL 0.4 MG/1 ML VIAL/CARP IV PRN (15:43)
[2024-02-04] MEDS ORDERED: ONDANSETRON INJ 2 MG/ML 2 ML VIAL IV PRN (15:43)
[2024-02-04] MEDS ORDERED: diphenhydrAMINE 50 MG/ML VIAL IV PRN (15:43)
[2024-02-04] MEDS ORDERED: ePHEDrine sulfate 50 MG/ML AMP IV PRN (15:43)
[2024-02-04] MEDS ORDERED: ROPIVACAINE 0.5% PF 5 MG/ML 20 ML VIAL EPI PRN (15:43)
[2024-02-04] MEDS ORDERED: LIDOCAINE 2% MPF LOCAL 5 ML VIAL EPI PRN (15:43)
[2024-02-04] MEDS: LIDOCAINE 2%/EPINEPHRINE 1:200,000 20 ML PF ONE (15:45)
[2024-02-04] MEDS: BUPIVACAINE 0.25% PF 30 ML VIAL ONE (15:45)
[2024-02-04] MEDS: fentaNYL citrate PF 100 MCG/2 ML VIAL ONE (15:53)
[2024-02-04] MEDS: SODIUM CHLORIDE 0.9% PF INJ 10 ML VIAL ONE (15:54)
--- NOTE | 2024-02-04 16:15 | Obstetrical Progress Note ---
Date of Service February 04, 2024 Assessment & Plan Admission and Anticipated Discharge Date Admission Date: February 02, 2024 Subjective Patient got painful with Oxytocin and received epidural for pain Comfortable now FHR categ I [place] irregular ctxs q 2-4 min, Oxytocin is at 12 miu/min VE; 1-2 cm/ thick/ -3, easier to reach Insertion of Hester catheter for mechanical dilatation: Patient was verbally consented before. Patient was placed in dorsal lithotomy position, speculum was placed in vagina, cervix was visualized and cleaned with Betadine solution. 20 [place] Hester catheter was inserted with into the cervical os and inflated with 30 mL of sterile water, balloon was not staying inside and coming out. Decision was made to do it digitally. The speculum was removed from vagina, the tip of Hester was inserted digitally into the cervical canal by my hand, the balloon was inflated with 40 ml of sterile water. Gentle traction was applied to the catheter and balloon was about to count from cervical os, another 10 mm of serial water was sent in, catheter was attached to patient medial thigh with gentle traction applying mechanical dilatation of the cervix. And another Hester catheter, 16 [place] ,was inserted into the bladder in a sterile manner to drain bladder during labor, Patient tolerated the procedure well, Continue to monitor, Continue to increase oxytocin per protocol. Results & Data Vital Signs (Past 12 Hours) Vital Signs Temp Pulse Resp BP Pulse Ox 02/04/24 16:06 76 99 02/04/24 16:05 73 140/81 02/04/24 16:00 73 136/83 97 02/04/24 15:56 74 98 02/04/24 15:55 36.6 C 78 16 128/70 94 02/04/24 15:51 80 124/72 97 02/04/24 15:46 79 96 02/04/24 15:45 81 126/73 02/04/24 15:43 75 125/67 02/04/24 15:41 75 128/71 02/04/24 15:40 72 96 02/04/24 15:39 82 142/80 H 02/04/24 15:36 81 98 02/04/24 15:30 101 H 99 02/04/24 15:25 83 99 02/04/24 15:21 91 H 97 02/04/24 14:00 78 18 134/82 02/04/24 13:12 64 137/79 02/04/24 13:11 20 02/04/24 13:11 20 02/04/24 11:59 69 16 118/62 02/04/24 10:49 36.9 C 78 18 124/68 02/04/24 07:02 36.9 C 83 16 127/83 02/04/24 05:00 36.9 C 76 16 116/66
[2024-02-04] MEDS: BUPIVACAINE 0.25% PF 30 ML VIAL EPI STA (17:08)
[2024-02-04] MEDS: SODIUM CHLORIDE 0.9% PF INJ 10 ML VIAL EPI STA (17:09)
[2024-02-04] MEDS: fentaNYL citrate PF 100 MCG/2 ML VIAL EPI STA (17:09)
[2024-02-04] MEDS: LIDOCAINE 2%/EPINEPHRINE 1:200,000 20 ML PF EPI STA (17:09)
--- NOTE | 2024-02-04 18:10 | Obstetrical Progress Note ---
Date of Service February 04, 2024 Assessment & Plan Admission and Anticipated Discharge Date Admission Date: February 02, 2024 Subjective Patient is reevaluated. She is comfortable no complaints FHR categ I [place] ctxs q 1-3 min, Oxytocin is at 18 miu/min VE; Hester bulb is in vagina, removed, cervix 4/ 40%/ -2, tight bag AROM'ed clear fluid, IUPC was placed to monitor contractions Continue to monitor closely Results & Data Vital Signs (Past 12 Hours) Vital Signs Temp Pulse Resp BP Pulse Ox 02/04/24 18:06 108 H 123/96 02/04/24 18:05 119 H 99 02/04/24 18:00 89 99 02/04/24 17:55 82 98 02/04/24 17:52 76 139/89 02/04/24 17:50 87 98 02/04/24 17:46 83 99 02/04/24 17:40 80 98 02/04/24 17:36 80 137/75 02/04/24 17:35 77 97 02/04/24 17:30 85 97 02/04/24 17:25 96 H 97 02/04/24 17:21 80 140/72 02/04/24 17:20 82 97 02/04/24 17:15 88 99 02/04/24 17:10 93 H 97 02/04/24 17:07 76 16 139/82 02/04/24 17:05 78 97 02/04/24 17:00 81 97 02/04/24 16:56 72 96 02/04/24 16:52 81 132/74 02/04/24 16:51 76 97 02/04/24 16:46 76 95 02/04/24 16:40 75 98 02/04/24 16:36 67 136/82 02/04/24 16:35 68 98 02/04/24 16:31 73 97 02/04/24 16:25 68 96 02/04/24 16:22 72 132/81 02/04/24 16:21 68 97 02/04/24 16:16 71 98 02/04/24 16:10 69 99 02/04/24 16:06 76 99 02/04/24 16:05 73 140/81 02/04/24 16:00 73 136/83 97 02/04/24 15:56 74 98 02/04/24 15:55 36.6 C 78 16 128/70 94 02/04/24 15:51 80 124/72 97 02/04/24 15:46 79 96 02/04/24 15:45 81 126/73 02/04/24 15:43 75 125/67 02/04/24 15:41 75 128/71 02/04/24 15:40 72 96 02/04/24 15:39 82 142/80 H 02/04/24 15:36 81 98 02/04/24 15:30 101 H 99 02/04/24 15:25 83 99 02/04/24 15:21 91 H 97 02/04/24 14:00 78 18 134/82 02/04/24 13:12 64 137/79 02/04/24 13:11 20 02/04/24 13:11 20 02/04/24 11:59 69 16 118/62 02/04/24 10:49 36.9 C 78 18 124/68 02/04/24 07:02 36.9 C 83 16 127/83
[2024-02-04] MEDS: ePHEDrine sulfate 50 MG/ML AMP ONE (19:55)
--- NOTE | 2024-02-04 21:42 | Obstetrical Progress Note ---
Date of Service February 04, 2024 Assessment & Plan Admission and Anticipated Discharge Date Admission Date: February 02, 2024 Subjective Patient is reevaluated. VSS Afebrile FHR categ I [place]: IUP had been monitoring ctxs > 200 MVU/ 10 min, Oxytocin 24 miu/min VE: cervix 4-5 cm/ 40%/ -2, cone head, anterior fontanelle at 1 o'clock position, OP Plan to rotate to left lateral side with peanut ball between legs Continue to monitor closely Results & Data Vital Signs (Past 12 Hours) Vital Signs Temp Pulse Resp BP Pulse Ox 02/04/24 21:35 93 H 98 02/04/24 21:30 80 97 02/04/24 21:25 80 96 02/04/24 21:21 74 118/68 02/04/24 21:20 78 96 02/04/24 21:15 78 97 02/04/24 21:10 83 98 02/04/24 21:06 80 117/65 02/04/24 21:05 87 98 02/04/24 21:00 83 97 02/04/24 20:55 85 98 02/04/24 20:52 75 118/62 02/04/24 20:50 102 H 97 02/04/24 20:45 79 96 02/04/24 20:43 16 02/04/24 20:43 36.8 C 16 02/04/24 20:40 100 H 98 02/04/24 20:36 72 137/81 02/04/24 20:35 80 96 02/04/24 20:30 85 96 02/04/24 20:25 86 98 02/04/24 20:22 83 111/58 L 02/04/24 20:20 83 97 02/04/24 20:15 80 97 02/04/24 20:10 75 96 02/04/24 20:06 76 136/75 02/04/24 20:05 74 97 02/04/24 20:00 74 97 02/04/24 19:55 80 96 02/04/24 19:51 71 138/77 02/04/24 19:50 73 96 02/04/24 19:45 105 H 98 02/04/24 19:40 80 96 02/04/24 19:36 82 115/70 02/04/24 19:35 85 97 03/24/24 19:30 80 97 24 19:25 77 96 24 19:23 90 128/76 24 19:20 79 97 24 19:15 82 96 24 19:10 80 97 24 19:06 74 136/84 24 19:05 76 97 24 19:00 36.8 C 18 02/04/24 19:00 82 95 02/04/24 18:55 83 97 24 18:52 75 136/78 24 18:50 79 97 24 18:45 76 98 02/04/24 18:40 76 97 02/04/24 18:36 75 137/92 02/04/24 18:35 78 98 02/04/24 18:31 79 99 24 18:25 80 98 24 18:22 74 146/74 H 02/04/24 18:20 78 98 02/04/24 18:15 76 98 02/04/24 18:10 80 97 24 18:06 108 H 18 123/96 24 18:05 119 H 99 02/04/24 18:00 89 99 24 17:55 82 98 24 17:52 76 139/89 24 17:50 87 98 24 17:46 83 99 24 17:40 80 98 24 17:36 80 137/75 24 17:35 77 97 24 17:30 85 97 24 17:25 96 H 97 24 17:21 80 140/72 24 17:20 82 97 24 17:15 88 99 24 17:10 93 H 97 24 17:07 76 16 139/82 24 17:05 78 97 24 17:00 81 97 24 16:56 72 96 24 16:52 81 132/74 24/24 16:51 76 97 24 16:46 76 95 24 16:40 75 98 24 16:36 67 136/82 24 16:35 68 98 24 16:31 73 97 24 16:25 68 96 24 16:22 72 132/81 24 16:21 68 97 24 16:16 71 98 24 16:10 69 99 02/04/24 16:06 76 99 02/04/24 16:05 73 140/81 02/04/24 16:00 73 136/83 97 02/04/24 15:56 74 98 02/04/24 15:55 36.6 C 78 16 128/70 94 02/04/24 15:51 80 124/72 97 02/04/24 15:46 79 96 02/04/24 15:45 81 126/73 24 15:43 75 125/67 24 15:41 75 128/71 24 15:40 72 96 02/04/24 15:39 82 142/80 H 02/04/24 15:36 81 98 24 15:30 101 H 99 24 15:25 83 99 24 15:21 91 H 97 02/04/24 14:00 78 18 134/82 24 13:12 64 137/79 02/04/24 13:11 20 24 13:11 20 24 11:59 69 16 118/62 02/03/24 10:49 36.9 C 78 18 124/68
[2024-02-04] MEDS: fentANYL 2 MCG/ML BUPIVacaine 0.125%-NSS 100ML BAG EPI PRN (23:15)
[2024-02-04] MEDS: ONDANSETRON INJ 2 MG/ML 2 ML VIAL IV PRN (23:49)
--- NOTE | 2024-02-05 00:27 | Obstetrical Progress Note ---
Date of Service February 05, 2024 Assessment & Plan Admission and Anticipated Discharge Date Admission Date: February 02, 2024 Subjective Patient is reevaluated FHR had decelerations, some early some variable on her side, she was placed in high Fowlers position and the recovered, it has been categ I [place]; 6/ 70%/ -1, still OP, tried manual rotation but head is not low enough for that Bed side US confirmed OP Plan to try again left side rotation with spinning cow position as long as baby tolerates Continue to monitor closely Results & Data Vital Signs (Past 12 Hours) Vital Signs Temp Pulse Resp BP Pulse Ox 02/05/24 00:23 110 H 93 02/05/24 00:20 88 97 02/05/24 00:15 93 H 96 02/05/24 00:13 100 H 92 02/05/24 00:10 98 H 97 02/05/24 00:07 96 H 94 02/05/24 00:06 96 H 114/65 02/05/24 00:05 103 H 95 02/05/24 00:01 89 94 02/05/24 00:00 88 95 02/04/24 23:55 86 95 02/04/24 23:52 105 H 114/60 02/04/24 23:50 105 H 95 02/04/24 23:45 89 97 02/04/24 23:40 100 H 97 02/04/24 23:35 128 H 99 02/04/24 23:30 101 H 96 02/04/24 23:25 91 H 96 02/04/24 23:20 121 H 18 95 02/04/24 23:15 97 H 96 02/04/24 23:10 112 H 97 02/04/24 23:06 108 H 135/71 02/04/24 23:05 109 H 96 02/04/24 23:00 93 H 97 02/04/24 22:55 111 H 97 02/04/24 22:51 107 H 134/71 02/04/24 22:50 107 H 98 02/04/24 22:45 161 H 98 02/04/24 22:40 97 H 98 02/04/24 22:37 95 H 148/62 H 02/04/24 22:35 91 H 98 02/04/24 22:30 91 H 99 02/04/24 22:25 92 H 99 02/04/24 22:22 93 H 134/77 02/04/24 22:20 89 98 02/04/24 22:19 18 02/04/24 22:19 36.9 C 18 02/04/24 22:15 110 H 97 02/04/24 22:10 75 96 02/04/24 22:07 72 114/59 L 02/04/24 22:05 74 97 02/04/24 22:00 74 98 02/04/24 21:55 70 98 02/04/24 21:52 68 110/56 L 02/04/24 21:50 76 97 02/04/24 21:45 72 98 02/04/24 21:41 67 109/60 02/04/24 21:40 73 98 02/04/24 21:35 93 H 98 02/04/24 21:30 80 97 02/04/24 21:25 80 96 02/04/24 21:21 74 118/68 02/04/24 21:20 78 96 02/04/24 21:15 78 97 02/04/24 21:10 83 98 02/04/24 21:06 80 117/65 02/04/24 21:05 87 98 02/04/24 21:00 83 97 02/04/24 20:55 85 98 02/04/24 20:52 75 118/62 02/04/24 20:50 102 H 97 02/04/24 20:45 79 96 02/04/24 20:43 16 02/04/24 20:43 36.8 C 16 02/04/24 20:40 100 H 98 02/04/24 20:36 72 137/81 02/04/24 20:35 80 96 02/04/24 20:30 85 96 02/04/24 20:25 86 98 02/04/24 20:22 83 111/58 L 02/04/24 20:20 83 97 02/04/24 20:15 80 97 02/04/24 20:10 75 96 02/04/24 20:06 76 136/75 02/04/24 20:05 74 97 02/04/24 20:00 74 97 02/04/24 19:55 80 96 02/04/24 19:51 71 138/77 02/04/24 19:50 73 96 03/24/24 19:45 105 H 98 24 19:40 80 96 24 19:36 82 115/70 24 19:35 85 97 24 19:30 80 97 24 19:25 77 96 0324 19:23 90 128/76 24 19:20 79 97 24 19:15 82 96 24 19:10 80 97 02/04/24 19:06 74 136/84 02/04/24 19:05 76 97 24 19:00 36.8 C 18 02/04/24 19:00 82 95 24 18:55 83 97 02/04/24 18:52 75 136/78 24 18:50 79 97 02/04/24 18:45 76 98 24 18:40 76 97 02/04/24 18:36 75 137/92 24 18:35 78 98 02/04/24 18:31 79 99 24 18:25 80 98 24 18:22 74 146/74 H 02/04/24 18:20 78 98 24 18:15 76 98 24 18:10 80 97 02/04/24 18:06 108 H 18 123/96 24 18:05 119 H 99 24 18:00 89 99 24 17:55 82 98 24 17:52 76 139/89 24 17:50 87 98 24 17:46 83 99 24 17:40 80 98 24 17:36 80 137/75 24 17:35 77 97 24 17:30 85 97 24 17:25 96 H 97 24 17:21 80 140/72 24 17:20 82 97 24 17:15 88 99 24 17:10 93 H 97 24 17:07 76 16 139/82 24 17:05 78 97 24 17:00 81 97 24 16:56 72 96 24 16:52 81 132/74 24/24 16:51 76 97 02/03/24 16:46 76 95 02/03/24 16:40 75 98 24 16:36 67 136/82 02/03/24 16:35 68 98 02/03/24 16:31 73 97 24 16:25 68 96 24 16:22 72 132/81 02/03/24 16:21 68 97 24 16:16 71 98 24 16:10 69 99 24 16:06 76 99 24 16:05 73 140/81 02/03/24 16:00 73 136/83 97 24 15:56 74 98 24 15:55 36.6 C 78 16 128/70 94 02/03/24 15:51 80 124/72 97 24 15:46 79 96 02/03/24 15:45 81 126/73 24/24 15:43 75 125/67 02/03/24 15:41 75 128/71 02/03/24 15:40 72 96 02/03/24 15:39 82 142/80 H 24 15:36 81 98 24 15:30 101 H 99 02/03/24 15:25 83 99 02/03/24 15:21 91 H 97 24 14:00 78 18 134/82 24/24 13:12 64 137/79 24 13:11 20 24 13:11 20
[2024-02-05] MEDS ORDERED: NURSING L&D Epidural Breakthrough Pain Update ONE (01:08)
--- NOTE | 2024-02-05 01:17 | Obstetrical Progress Note ---
Date of Service February 05, 2024 Assessment & Plan Admission and Anticipated Discharge Date Admission Date: February 02, 2024 Subjective Patient suddenly became uncomfortable c/o pressure on bladder, aguirre is taken out VE; 8-9 cm/ 90%/ 0 to +1 with contraction, ROP FHR categ I Epidural settings were increased and she feels better Continue to monitor Results & Data Vital Signs (Past 12 Hours) Vital Signs Temp Pulse Resp BP Pulse Ox 02/05/24 01:10 98 H 99 02/05/24 01:05 119 H 99 02/05/24 01:00 114 H 100 02/05/24 00:55 93 H 98 02/05/24 00:50 114 H 96 02/05/24 00:45 84 96 02/05/24 00:40 85 97 02/05/24 00:37 101 H 132/92 02/05/24 00:35 94 H 97 02/05/24 00:30 96 H 98 02/05/24 00:29 18 02/05/24 00:29 36.5 C 18 02/05/24 00:25 87 97 02/05/24 00:23 110 H 93 02/05/24 00:20 88 97 02/05/24 00:15 93 H 96 02/05/24 00:13 100 H 92 02/05/24 00:10 98 H 97 02/05/24 00:07 96 H 94 02/05/24 00:06 96 H 114/65 02/05/24 00:05 103 H 95 02/05/24 00:01 89 94 02/05/24 00:00 88 95 02/04/24 23:55 86 95 02/04/24 23:52 105 H 114/60 02/04/24 23:50 105 H 95 02/04/24 23:45 89 97 02/04/24 23:40 100 H 97 02/04/24 23:35 128 H 99 02/04/24 23:30 101 H 96 02/04/24 23:25 91 H 96 02/04/24 23:20 121 H 18 95 02/04/24 23:15 97 H 96 02/04/24 23:10 112 H 97 02/04/24 23:06 108 H 135/71 02/04/24 23:05 109 H 96 02/04/24 23:00 93 H 97 02/04/24 22:55 111 H 97 02/04/24 22:51 107 H 134/71 02/04/24 22:50 107 H 98 02/04/24 22:45 161 H 98 02/04/24 22:40 97 H 98 02/04/24 22:37 95 H 148/62 H 02/04/24 22:35 91 H 98 02/04/24 22:30 91 H 99 02/04/24 22:25 92 H 99 02/04/24 22:22 93 H 134/77 02/04/24 22:20 89 98 02/04/24 22:19 18 02/04/24 22:19 36.9 C 18 02/04/24 22:15 110 H 97 02/04/24 22:10 75 96 02/04/24 22:07 72 114/59 L 02/04/24 22:05 74 97 02/04/24 22:00 74 98 02/04/24 21:55 70 98 02/04/24 21:52 68 110/56 L 02/04/24 21:50 76 97 02/04/24 21:45 72 98 02/04/24 21:41 67 109/60 02/04/24 21:40 73 98 02/04/24 21:35 93 H 98 02/04/24 21:30 80 97 02/04/24 21:25 80 96 02/04/24 21:21 74 118/68 02/04/24 21:20 78 96 02/04/24 21:15 78 97 02/04/24 21:10 83 98 02/04/24 21:06 80 117/65 02/04/24 21:05 87 98 02/04/24 21:00 83 97 02/04/24 20:55 85 98 02/04/24 20:52 75 118/62 02/04/24 20:50 102 H 97 02/04/24 20:45 79 96 02/04/24 20:43 16 02/04/24 20:43 36.8 C 16 02/04/24 20:40 100 H 98 02/04/24 20:36 72 137/81 02/04/24 20:35 80 96 02/04/24 20:30 85 96 02/04/24 20:25 86 98 03/24/24 20:22 83 111/58 L 02/04/24 20:20 83 97 24 20:15 80 97 02/04/24 20:10 75 96 02/04/24 20:06 76 136/75 02/04/24 20:05 74 97 02/04/24 20:00 74 97 02/04/24 19:55 80 96 02/04/24 19:51 71 138/77 02/04/24 19:50 73 96 02/04/24 19:45 105 H 98 02/04/24 19:40 80 96 24 19:36 82 115/70 02/04/24 19:35 85 97 02/04/24 19:30 80 97 02/04/24 19:25 77 96 02/04/24 19:23 90 128/76 02/04/24 19:20 79 97 02/04/24 19:15 82 96 02/04/24 19:10 80 97 02/04/24 19:06 74 136/84 02/04/24 19:05 76 97 02/04/24 19:00 36.8 C 18 02/04/24 19:00 82 95 02/04/24 18:55 83 97 24 18:52 75 136/78 24 18:50 79 97 02/04/24 18:45 76 98 02/04/24 18:40 76 97 24 18:36 75 137/92 24 18:35 78 98 24 18:31 79 99 24 18:25 80 98 24 18:22 74 146/74 H 02/04/24 18:20 78 98 24 18:15 76 98 24 18:10 80 97 24 18:06 108 H 18 123/96 24 18:05 119 H 99 24 18:00 89 99 24 17:55 82 98 24 17:52 76 139/89 24 17:50 87 98 24 17:46 83 99 24 17:40 80 98 24 17:36 80 137/75 24 17:35 77 97 03/24/24 17:30 85 97 03/24/24 17:25 96 H 97 03/24/24 17:21 80 140/72 03/24/24 17:20 82 97 03/24/24 17:15 88 99 03/24/24 17:10 93 H 97 /24/24 17:07 76 16 139/82 03/24/24 17:05 78 97 03/24/24 17:00 81 97 03/24/24 16:56 72 96 /24/24 16:52 81 132/74 03/24/24 16:51 76 97 /24/24 16:46 76 95 /24/24 16:40 75 98 03/24/24 16:36 67 136/82 03/24/24 16:35 68 98 /24/24 16:31 73 97 /24/24 16:25 68 96 /24/24 16:22 72 132/81 03/24/24 16:21 68 97 /24/24 16:16 71 98 24/24 16:10 69 99 24/24 16:06 76 99 /24/24 16:05 73 140/81 0324/24 16:00 73 136/83 97 03/24/24 15:56 74 98 /24/24 15:55 36.6 C 78 16 128/70 94 /24/24 15:51 80 124/72 97 03/24/24 15:46 79 96 /24/24 15:45 81 126/73 03/24/24 15:43 75 125/67 03/24/24 15:41 75 128/71 03/24/24 15:40 72 96 03/24/24 15:39 82 142/80 H 03/24/24 15:36 81 98 03/24/24 15:30 101 H 99 03/24/24 15:25 83 99 03/24/24 15:21 91 H 97 03/24/24 14:00 78 18 134/82
[2024-02-05] MEDS: fentaNYL citrate PF 100 MCG/2 ML VIAL EPI PRN (01:47)
[2024-02-05] MEDS: BUPIVACAINE 0.25% PF 30 ML VIAL EPI PRN (01:47)
[2024-02-05] MEDS: SODIUM CHLORIDE 0.9% PF INJ 10 ML VIAL EPI PRN (01:48)
--- NOTE | 2024-02-05 01:48 | Anesthesia Procedure Note ---
Date of Service February 05, 2024 Anesthesia Epidural Re-Dose Vital Signs Temp Pulse Resp BP Pulse Ox 36.5 C 95 H 18 147/86 H 99 02/05/24 00:29 02/05/24 01:45 02/05/24 00:29 02/05/24 01:36 02/05/24 01:45 Notes Pain Intensity: 0 Dilatation (cm): 8.0 Effacement (%): 100 Called by nursing to evaluate epidural as the patient is having increased pain. The epidural was re-dosed with the following medications (all medications via epidural route) after negative aspiration of the epidural catheter for CSF/HEME. 0.2 Ropivacaine ml via epidural After Epidural Re-Dose Mental Status: alert / awake / arousable and participated in evaluation Pain: improving with treatment Airway Patency, RR, SpO2: stable & adequate BP & HR: stable & adequate Additional Notes: Asked to assess patient for increased pain. Patient has made change and is now 8 cm. She feels rectal and bladder pain. Otherwise epidural has been working well. Redose patient with 10 cc of 0.125 bupi as well as 100 mcg fentanyl. Pain controlled. Vitals stable.
[2024-02-05] MEDS ORDERED: OXYTOCIN 30 UNITS/NSS 30 UNITS/500 ML BAG IV PRN (02:36)
[2024-02-05] MEDS ORDERED: HYDROCORTISONE ACETATE 25 MG SUPP PR PRN (02:36)
[2024-02-05] MEDS ORDERED: oxyCODONE/ACETAMINOPHEN 5mg/325mg TAB PO PRN (02:36)
--- NOTE | 2024-02-05 02:40 | Delivery Summary ---
Vaginal Delivery Summary Date of Service February 05, 2024 Vaginal Delivery Summary Patient was found to be fully dilated and desired to push. Head was till Right Occiput posterior position. I was rotated to OA manually by myself. Then She pushed with 5 contractions only and delivered the head and then shoulders with minimal traction. There was a nuchal cord around neckx1 which was reduced. The baby was handed off to the mother. The cord was clampedx2 and cut at 1 minute. The vagina and perineum were checked and found to have small 1st degree perineal laceration. It was repaired with 2/0 Vicryl. And small right labial laceration. It was repaired with 3/0 Vicryl on SH needle. Good hemostasis was achieved. The placenta was delivered spontaneously as intact and complete. The uterus was explored and found to be empty. EBL was 100 ml. The fundus was firm The baby was a viable female , Apgars 7/9, the weight is pending The mother and the baby tolerated the procedure well. No complications happened and I was present during whole procedure.
[2024-02-05] MEDS: BENZOCAINE 20% SPRY 85 APPLN/85 GM CAN EXT PRN (04:40)
--- NOTE | 2024-02-05 07:27 | Anesthesia Procedure Note ---
Date of Service February 05, 2024 Anesthesia Post Epidural Note Vital Signs Vital Signs: Temp Pulse Resp BP Pulse Ox O2 Del Method 36.8 C 118 H 20 137/88 96 Room Air 02/05/24 05:00 02/05/24 05:00 02/05/24 05:00 02/05/24 05:00 02/05/24 05:00 02/05/24 05:00 Notes Mental Status: alert / awake / arousable and participated in evaluation Nausea / Vomiting: adequately controlled Pain: adequately controlled Airway Patency, RR, SpO2: stable & adequate BP & HR: stable & adequate Hydration State: stable & adequate Neuraxial Anesthesia: was administered and sensory block is resolving Anesthetic Complications: no major complications apparent Epidural: Removed without complications and With tip intact
[2024-02-05] MEDS: IBUPROFEN 600 MG TAB PO PRN (08:03)
[2024-02-05] MEDS: FERROUS SULFATE 325 MG TAB PO SCH (08:11)
[2024-02-05] MEDS: DOCUSATE SODIUM 100 MG CAP PO SCH (08:11)
[2024-02-05] MEDS: PRENATAL VITAMIN 1 TAB PO SCH (08:12)
[2024-02-05] MEDS: ACETAMINOPHEN 325 MG TAB PO PRN (18:26)
[2024-02-06] MEDS: DIPHTHER/TETAN/PERTUS Vaccine (Tdap, Adol/Adult) 0.5mL IM ONE (05:41)
[2024-02-06 06:42] LABS: Hematocrit (blood only) 36.6 % (37.0-47.0); Hemoglobin 12.3 g/dl (12.0-16.0); Mean Corpuscular Hemoglobin 30.9 pg (25.0-34.0); Mean Corpuscular Hgb Conc 33.6 g/dL (32.0-36.0); Mean Platelet Volume 10.7 fL (9.4-12.4); Platelet Count 214 K/uL (130-400); RDW Coefficient of Variation 13.6 % (11.5-14.5); RDW Standard Deviation 45.5 fL (36.4-46.3); Red Blood Count 3.98 M/uL (4.20-5.40); White Blood Count 14.98 K/ul (4.8-10.8)
[2024-02-06] MEDS: MEASLES, MUMPS & RUBELLA VIRUS VACCINE (MMR) 0.5ML VIAL SQ ONE (08:01)
--- NOTE | 2024-02-06 08:49 | Obstetrical Progress Note ---
Date of Service February 06, 2024 Assessment & Plan Admission and Anticipated Discharge Date Admission Date: February 02, 2024 Subjective Patient is seen and examined. She feels well, no complaints. Desires d/c today Ambulating without dizziness Voiding without difficulty Tolerating regular diet with out N&V Bleeding is minimal No fever/ chills/ CP/ SOB/ N&V/ Leg pain Breast and bottle feeding without problems Vital Signs Temp Pulse Pulse Resp BP Pulse Ox O2 Del Method 02/06/24 08:35 36.6 C 78 78 20 129/82 02/05/24 23:45 36.6 C 79 18 136/82 97 Room Air 02/05/24 21:40 36.5 C 74 18 131/85 97 Room Air 02/05/24 16:00 36.9 C 84 16 144/93 H Room Air 02/05/24 12:49 36.7 C 99 H 136/89 02/05/24 09:04 36.7 C 88 16 132/88 Room Air Intake and Output 02/05/24 02/06/24 02/06/24 22:59 06:59 14:59 Intake Total 385.5 / 385.5 Balance 385.5 / 385.5 Intake: IV 385.5 / 385.5 Lactated Ringer's 1,000 ml @ 0 / 0 150 mls/hr IV .[id number] Rx#: [id number] Oxytocin 30 Units/Nss 30 units 385.5 / 385.5 In 500 ml @ 1.32 UNITS/HR 22 mls/hr IV .[id number] PRN Rx#: [id number] Other: # Unmeasured Voids 1 Lab Results 02/02/24 02/04/24 02/04/24 Range/Units 08:47 10:37 10:45 WBC 10.47 10.36 (4.8-10.8) K/ul RBC 4.24 4.19 L (4.20-5.40) M/uL Hgb 13.2 12.7 (12.0-16.0) g/dl Hct 38.7 38.0 (37.0-47.0) % MCV 91.3 90.7 (80.0-100.0) fL MCH 31.1 30.3 (25.0-34.0) pg MCHC 34.1 33.4 (32.0-36.0) g/dL RDW Std Deviation 44.2 43.9 (36.4-46.3) fL RDW Coeff of Laure 13.3 13.3 (11.5-14.5) % Plt Count 220 218 (130-400) K/uL MPV 10.7 10.7 (9.4-12.4) fL Immature Gran % (Auto) 1.4 % Neut % (Auto) 67.6 % Lymph % (Auto) 22.3 % [place] % (Auto) 6.8 % Eos % (Auto) 1.3 % Baso % (Auto) 0.6 % Neut # (Auto) 7.02 H (1.40-6.50) K/uL Lymph # (Auto) 2.31 (1.20-3.40) K/uL [place] # (Auto) 0.70 H (0.11-0.59) K/uL Eos # (Auto) 0.13 (0.00-0.50) K/uL Baso # (Auto) 0.06 (0.00-0.20) K/uL Immature Gran # (Auto) 0.14 (0.01-0.20) K/uL Sodium 137 135 L (136-145) mmol/L Potassium 3.8 3.8 (3.5-5.1) mmol/L Chloride 107 106 (98-107) mmol/L Carbon Dioxide 21 20 L (21-32) mmol/L Anion Gap 9 9 (3-11) BUN 4 L 6 (6-23) mg/dl Creatinine 0.58 L 0.55 L (0.6-1.2) mg/dl Est Cr Clr Drug Dosing 193.1 203.6 ml/min Est GFR ( Amer) 143.4 145.9 ml/min Est GFR (Non-Af Amer) 123.7 125.9 ml/min BUN/Creatinine Ratio 6.9 L 10.9 (10-20) Glucose 93 94 (70-99(Fasting)) mg/dl Calcium 8.8 8.7 (8.6-10.3) mg/dl Total Bilirubin 0.4 0.5 (0.2-1.0) mg/dl Direct Bilirubin 0.1 (0-0.2) mg/dl AST 24 24 (13-39) U/L ALT 36 34 (7-52) U/L Alkaline Phosphatase 149 H 161 H (34-104) U/L Total Protein 6.5 6.2 (6.0-8.3) gm/dl Albumin 3.5 3.4 (3.4-5.0) gm/dl Globulin 3.0 2.8 (2.5-4.0) gm/dl Albumin/Globulin Ratio 1.2 1.2 (0.9-2) Ur Random Creatinine 63.3 mg/dl U Random Total Protein 8.0 (0-11.9) mg/dl Protein/Creatinin Ratio 0.1 (0-0.2) Blood Type O Positive O Positive Antibody Screen NEGATIVE NEGATIVE 02/06/24 Range/Units 06:13 WBC 14.98 H (4.8-10.8) K/ul RBC 3.98 L (4.20-5.40) M/uL Hgb 12.3 (12.0-16.0) g/dl Hct 36.6 L (37.0-47.0) % MCV 92.0 (80.0-100.0) fL MCH 30.9 (25.0-34.0) pg MCHC 33.6 (32.0-36.0) g/dL RDW Std Deviation 45.5 (36.4-46.3) fL RDW Coeff of Laure 13.6 (11.5-14.5) % Plt Count 214 (130-400) K/uL MPV 10.7 (9.4-12.4) fL Immature Gran % (Auto) % Neut % (Auto) % Lymph % (Auto) % [place] % (Auto) % Eos % (Auto) % Baso % (Auto) % Neut # (Auto) (1.40-6.50) K/uL Lymph # (Auto) (1.20-3.40) K/uL [place] # (Auto) (0.11-0.59) K/uL Eos # (Auto) (0.00-0.50) K/uL Baso # (Auto) (0.00-0.20) K/uL Immature Gran # (Auto) (0.01-0.20) K/uL Sodium (136-145) mmol/L Potassium (3.5-5.1) mmol/L Chloride (98-107) mmol/L Carbon Dioxide (21-32) mmol/L Anion Gap (3-11) BUN (6-23) mg/dl Creatinine (0.6-1.2) mg/dl Est Cr Clr Drug Dosing ml/min Est GFR ( Amer) ml/min Est GFR (Non-Af Amer) ml/min BUN/Creatinine Ratio (10-20) Glucose (70-99(Fasting)) mg/dl Calcium (8.6-10.3) mg/dl Total Bilirubin (0.2-1.0) mg/dl Direct Bilirubin (0-0.2) mg/dl AST (13-39) U/L ALT (7-52) U/L Alkaline Phosphatase (34-104) U/L Total Protein (6.0-8.3) gm/dl Albumin (3.4-5.0) gm/dl Globulin (2.5-4.0) gm/dl Albumin/Globulin Ratio (0.9-2) Ur Random Creatinine mg/dl U Random Total Protein (0-11.9) mg/dl Protein/Creatinin Ratio (0-0.2) Blood Type Antibody Screen PE: General: Alert, orientedx3, NAD Abd: soft, NT, fundus firm, below Umbilicus Perineum intact, Lochia rubra minimal Ext; NT, no edema AP: 28 yo s/p , ppd# 1 VSS Afebrile doing well Continue routine care All questions were answered D/C home per her request, f/u in a week in office, Results & Data Vital Signs (Past 12 Hours) Vital Signs Temp Pulse Pulse Resp BP Pulse Ox O2 Del Method 02/06/24 08:35 36.6 C 78 78 20 129/82 02/05/24 23:45 36.6 C 79 18 136/82 97 Room Air 02/05/24 21:40 36.5 C 74 18 131/85 97 Room Air
[2024-02-06] MEDS ORDERED: bisacodyL 5 MG TABEC PO SCH (20:00)
[2024-02-07] MEDS ORDERED: bisacodyL 10 MG SUPP PR PRN
== END 2024-02-06 14:52 | disposition home or self-care (01) | DRG 807 ==
LOC: 4S1 07:22 → 4E2 02-05 05:10

== ENCOUNTER 2025-08-22 08:07 | Inpatient (IN) ==
[2025-08-22] MEDS ORDERED: LIDOCAINE 1% LOCAL 20 ML VIAL INFIL PRN (08:18)
[2025-08-22] MEDS ORDERED: ACETAMINOPHEN 500 MG TAB PO PRN (08:18)
[2025-08-22] MEDS ORDERED: OXYTOCIN 30 UNITS/NSS 30 UNITS/500 ML BAG IV PRN (08:18)
[2025-08-22] MEDS: LACTATED RINGER'S 1,000 ML IV PRN (08:37)
--- NOTE | 2025-08-22 08:42 | History & Physical Report ---
Date of Service August 22, 2025 Assessment & Plan (1) Spontaneous rupture of amniotic membranes: Plan: 29-year-old -0-0-1 at 39 weeks and 5 days of gestation presenting this morning with spontaneous rupture of membranes at term, regular contractions, and active labor, requesting epidural for pain, Vital signs stable afebrile, GBS negative, Plan to admit, monitor, labs, IV fluids and epidural for pain, Anticipate , All questions were answered. (2) Active labor at term: Admission and Anticipated Discharge Date Admission Date: August 22, 2025 History of Present Illness Primary Care Provider: Adryan Cr MD Patient is a 29-year-old -0-0-1 at 39 weeks and 5 days of gestation who woke up this morning around 7 AM with contractions followed by leakage of fluid at 7:30 AM. It was yellow to brownish in color. Contractions having, regularly every 3 to 4 minutes and she is asking for epidural for pain. Her has been uncomplicated, she denies medical problems except migraines. She has gestational hypertension with last and has been on aspirin, her blood pressures have been within normal limits during this . GBS is negative. Allergies Allergy/AdvReac Type Severity Reaction Status Date / Time No Known Allergies Allergy Verified 08/19/25 19:03 Home Medications Medication Instructions Recorded Confirmed Type vits no.124-ferrous fum 1 tab PO DAILY@08 #60 tabs 02/06/24 08/22/25 Rx 27 mg iron-folic acid 800 mcg tablet ( Vitamin) aspirin 81 mg chewable tablet 1 tab PO DAILY 08/19/25 08/22/25 History iron,carbonyl 65 mg-vitamin C 125 1 tab PO DAILY 08/19/25 08/22/25 History mg tablet,delayed release (Vitron-C) magnesium glycinate 100 mg (as 200 mg PO DAILY 08/19/25 08/22/25 History glycinate) tablet Patient History Medical History Spontaneous vaginal delivery 01/2024 [facility] Encounter for induction of labor Ketonuria Dehydration during uterine contractions in third trimester, antepartum Elevated blood pressure affecting in third trimester, antepartum Migraine Surgical History H/O lumpectomy 2012 History of tonsillectomy Family History Father History of bowel resection Hypertension Diabetes Grandmother (Paternal) Cancer Grandmother (Maternal) Cancer Social History Smoking Status: Never smoker Hx Alcohol Use: No Hx Substance Use: No Preferred Language: Uzbek Communication Ability: Effective 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 Required: No Beliefs That Will Affect Care: None marital status: Current Living Situation: Family Current Living Situation Comment: lives at home with , daughter, and 2 huskies Other Information That Helps Us Care for You: No Feels Safe at Home: Yes Safety Concerns: Feels Safe At This Time Assistive Devices: Contacts OB History Full-term in January 2024 by myself, no complications [employer] History no history of STDs, no history of chlamydia, gonorrhea, herpes Review of Systems as per Subjective / HPI Physical Exam Constitutional: WD/WN, vitals as above well developed, well nourished and + acute distress ( with contractions only comfortable in between) Gastrointestinal (Abdomen): normal bowel sounds, soft, nontender, no hepatosplenomegaly (gravid) Genitourinary: normal external appearance and + bladder abnormality OB Exam Abdomen: + vertex ( confirmed with bedside ultrasound) Manual OB Exam: + cervical dilation 4 cm (4-5 CM), + cervical effacement 70% and + station high ( per her nurse) OB Exam Monitor Tracing: + external FHT monitor used, + external uterine monitor used ( contractions every 3 to 4 minutes) and + category I grossly ruptured and movement moderate meconium stained fluid Results & Data Vital Signs (Past 12 Hours) Vital Signs Temp Pulse BP 08/22/25 08:21 86 141/87 H 08/22/25 08:17 36.5 C
[2025-08-22 09:13] LABS: Hematocrit (blood only) 38.3 % (37.0-47.0); Hemoglobin 13.5 g/dl (12.0-16.0); Mean Corpuscular Hemoglobin 31.3 pg (25.0-34.0); Mean Corpuscular Volume 88.7 fL (80.0-100.0); Platelet Count 219 K/uL (130-400); RDW Standard Deviation 43.5 fL (36.4-46.3); Red Blood Count 4.32 M/uL (4.20-5.40); White Blood Count 10.13 K/ul (4.8-10.8)
[2025-08-22 09:32] LABS: Alanine Aminotransferase 52.0 U/L (7-52); Albumin Globulin Ratio 1.0 (0.9-2); Albumin Level 3.2 gm/dl (3.4-5.0); Alkaline Phosphatase 171.0 U/L (34-104); Anion Gap 10.0 (3-11); Bilirubin,Total 0.4 mg/dl (0.2-1.0); Blood Urea Nitrogen 6.0 mg/dl (6-23); Calcium 8.7 mg/dl (8.6-10.3); Carbon Dioxide 18.0 mmol/L (21-32); Chloride 108.0 mmol/L (98-107); Creatinine Clr Calc Pharmacy 199.2 ml/min; Globulin 3.1 gm/dl (2.5-4.0); Glucose 93.0 mg/dl (70-99(Fasting)); Potassium 3.7 mmol/L (3.5-5.1); Sodium 136.0 mmol/L (136-145); Total Protein 6.3 gm/dl (6.0-8.3)
[2025-08-22] MEDS: BUPIVACAINE 0.25% PF 30 ML VIAL ONE ×2 (09:51→11:18)
[2025-08-22] MEDS: fentANYL 2 MCG/ML BUPIVacaine 0.125%-NSS 100ML BAG ONE ×2 (09:52→11:18)
[2025-08-22] MEDS: LIDOCAINE 2%/EPINEPHRINE 1:200,000 20 ML PF ONE ×2 (09:56→11:18)
--- NOTE | 2025-08-22 10:05 | Anesthesiology Consultation ---
Date of Service August 22, 2025 Assessment & Plan Chart Review Chart Review: Acceptable Risk for Labor Epidural Consults Requested none History Height/Weight Height: 5 ft 8 in Weight: 117.027 kg Allergies Allergy/AdvReac Type Severity Reaction Status Date / Time No Known Allergies Allergy Verified 08/19/25 19:03 Medications Home Medications Medication Instructions Recorded Confirmed Last Taken vits no.124-ferrous fum 1 tab PO DAILY@08 #60 tabs 02/06/24 08/22/25 08/18/25 27 mg iron-folic acid 800 mcg tablet ( Vitamin) aspirin 81 mg chewable tablet 1 tab PO DAILY 08/19/25 08/22/25 08/18/25 iron,carbonyl 65 mg-vitamin C 125 1 tab PO DAILY 08/19/25 08/22/25 08/18/25 mg tablet,delayed release (Vitron-C) magnesium glycinate 100 mg (as 200 mg PO DAILY 08/19/25 08/22/25 08/18/25 glycinate) tablet Active Medications Generic Name Dose Route Start Last Admin Trade Name Freq PRN Reason Stop Dose Admin Lactated Ringer's 1,000 mls @ 125 mls/hr 08/22/25 08:18 08/22/25 09:10 Lr IV 08/24/25 08:17 125 mls/hr .Q8H PRN Infusion L&D Protocol Protocol Past Medical History Medical History Spontaneous vaginal delivery 01/2024 [facility] Encounter for induction of labor Ketonuria Dehydration during uterine contractions in third trimester, antepartum Elevated blood pressure affecting in third trimester, antepartum Migraine Past Family History Family History Father History of bowel resection Hypertension Diabetes Grandmother (Paternal) Cancer Grandmother (Maternal) Cancer Past Surgical History Surgical History H/O lumpectomy 2012 History of tonsillectomy Social History Smoking Status: Never smoker Hx Alcohol Use: No Hx Substance Use: No Physical Exam Vital Signs Last Vital Signs Temp 36.5 C 08/22/25 08:17 Pulse 84 08/22/25 10:01 BP 151/72 H 08/22/25 10:04 Pulse Ox 98 08/22/25 09:59 Testing Laboratory Results 08/22/25 08:50 08/22/25 08:50 Blood Type O Positive 08/22/25 08:50 Antibody Screen NEGATIVE 08/22/25 08:50
[2025-08-22] MEDS ORDERED: ROPIVACAINE 0.5% PF 5 MG/ML 20 ML VIAL EPI PRN (10:07)
[2025-08-22] MEDS ORDERED: LIDOCAINE 2% MPF LOCAL 5 ML VIAL EPI PRN (10:07)
[2025-08-22] MEDS ORDERED: SODIUM CHLORIDE 0.9% PF INJ 10 ML VIAL EPI PRN (10:07)
[2025-08-22] MEDS ORDERED: diphenhydrAMINE 50 MG/ML VIAL IV PRN (10:07)
[2025-08-22] MEDS ORDERED: NALBUPHINE HCL INJ 10 MG/ML AMP IV PRN (10:07)
[2025-08-22] MEDS ORDERED: BUPIVACAINE 0.25% PF 30 ML VIAL EPI PRN (10:07)
[2025-08-22] MEDS ORDERED: NALOXONE HCL 0.4 MG/1 ML VIAL/CARP IV PRN (10:07)
[2025-08-22] MEDS ORDERED: NALOXONE HCL 1 MG in SODIUM CHLORIDE 0.9% 1,000 ML IV PRN (10:07)
--- NOTE | 2025-08-22 10:11 | Obstetrical Progress Note ---
Date of Service August 22, 2025 Assessment & Plan Admission and Anticipated Discharge Date Admission Date: August 22, 2025 Subjective patient has received epidural now. Vaginal exam: cervix is posterior 5 cm, 50%, head is high at -3 heart rate category 1, Continue to monitor closely, Augment with oxytocin as needed Results & Data Vital Signs (Past 12 Hours) Vital Signs Temp Pulse BP Pulse Ox 08/22/25 10:07 122 H 146/74 H 08/22/25 10:04 72 151/72 H 100 08/22/25 10:03 136/68 08/22/25 10:01 84 139/71 08/22/25 09:59 91 H 98 08/22/25 09:58 109 H 134/84 08/22/25 09:56 83 129/76 08/22/25 09:55 102 H 136/71 08/22/25 09:54 98 H 99 08/22/25 09:52 100 H 132/82 08/22/25 09:50 85 141/92 H 08/22/25 09:49 84 97 08/22/25 09:44 74 99 08/22/25 09:43 82 94 08/22/25 09:39 89 97 08/22/25 09:34 75 99 08/22/25 09:29 65 100 08/22/25 09:24 65 99 08/22/25 08:21 86 141/87 H 08/22/25 08:17 36.5 C
[2025-08-22] MEDS: CALCIUM CARBONATE 500 MG CHEWABLE TAB PO PRN (10:45)
[2025-08-22] MEDS ORDERED: NURSING L&D Epidural Breakthrough Pain Update ONE (11:03)
[2025-08-22] MEDS: OXYTOCIN 30 UNITS/500ML NSS IV ONE (11:18)
[2025-08-22] MEDS: SODIUM CHLORIDE 0.9% PF INJ 10 ML VIAL ONE ×2 (11:18)
--- NOTE | 2025-08-22 11:32 | Anesthesia Procedure Note ---
Date of Service August 22, 2025 Anesthesia Epidural Re-Dose Vital Signs Temp Pulse Resp BP Pulse Ox 36.5 C 86 18 130/83 100 08/22/25 10:15 08/22/25 11:31 08/22/25 11:00 08/22/25 11:31 08/22/25 11:29 Notes Pain Intensity: 6 Dilatation (cm): 5.0 Effacement (%): 50 Called by nursing to evaluate epidural as the patient is having increased pain. The epidural was re-dosed with the following medications (all medications via epidural route) after negative aspiration of the epidural catheter for CSF/HEME. 2% lidocaine 5ml with fentanyl 100mcg. After Epidural Re-Dose Mental Status: alert / awake / arousable Pain: improving with treatment Airway Patency, RR, SpO2: stable & adequate BP & HR: stable & adequate
[2025-08-22] MEDS: OXYTOCIN 30 UNITS/NSS 30 UNITS/500 ML BAG IV PRN ×2 (13:26→19:15)
--- NOTE | 2025-08-22 14:01 | Obstetrical Progress Note ---
Date of Service August 22, 2025 Assessment & Plan Admission and Anticipated Discharge Date Admission Date: August 22, 2025 Subjective Patient started to get more painful and her cervix was checked by her nurse. It was 7 cm dilated and had came down to 0 station, calling anesthesiologist for redosing. Continue to monitor closely. Results & Data Vital Signs (Past 12 Hours) Vital Signs Temp Pulse Resp BP Pulse Ox 08/22/25 13:54 99 08/22/25 13:54 91 H 08/22/25 13:54 100 H 136/89 08/22/25 13:49 81 97 08/22/25 13:47 81 94 08/22/25 13:44 88 97 08/22/25 13:39 102 H 132/94 97 08/22/25 13:34 101 H 99 08/22/25 13:30 18 08/22/25 13:30 18 08/22/25 13:29 97 H 99 08/22/25 13:24 90 124/87 99 08/22/25 13:19 106 H 99 08/22/25 13:14 81 98 08/22/25 13:11 85 130/90 08/22/25 13:09 85 99 08/22/25 13:04 90 99 08/22/25 13:00 18 08/22/25 13:00 36.9 C 18 08/22/25 12:59 90 100 08/22/25 12:54 82 143/83 H 99 08/22/25 12:49 89 99 08/22/25 12:44 80 99 08/22/25 12:39 82 99 08/22/25 12:34 93 H 99 08/22/25 12:29 124 H 99 08/22/25 12:26 78 163/84 H 08/22/25 12:24 79 99 08/22/25 12:19 91 H 100 08/22/25 12:14 73 99 08/22/25 12:09 100 08/22/25 12:09 70 08/22/25 12:09 70 149/89 H 08/22/25 12:04 69 100 08/22/25 12:00 20 08/22/25 12:00 20 08/22/25 11:59 90 99 08/22/25 11:54 87 142/89 H 100 08/22/25 11:49 75 99 08/22/25 11:45 78 145/87 H 08/22/25 11:44 84 100 08/22/25 11:39 80 100 08/22/25 11:37 36.7 C 77 135/70 08/22/25 11:35 78 133/77 08/22/25 11:34 84 99 08/22/25 11:33 78 126/82 08/22/25 11:31 86 130/83 08/22/25 11:30 20 08/22/25 11:30 20 08/22/25 11:29 80 130/86 100 08/22/25 11:27 76 144/96 H 08/22/25 11:24 74 99 08/22/25 11:19 71 100 08/22/25 11:14 81 99 08/22/25 11:13 78 134/88 08/22/25 11:09 77 100 08/22/25 11:04 65 99 08/22/25 11:00 18 08/22/25 11:00 18 08/22/25 10:59 97 08/22/25 10:59 73 08/22/25 10:59 72 141/92 H 08/22/25 10:54 68 98 08/22/25 10:49 73 99 08/22/25 10:44 79 99 08/22/25 10:43 77 137/82 08/22/25 10:39 75 99 08/22/25 10:34 66 100 08/22/25 10:30 18 08/22/25 10:30 18 08/22/25 10:29 69 99 08/22/25 10:28 80 123/76 08/22/25 10:27 78 149/79 H 08/22/25 10:24 81 100 08/22/25 10:22 72 132/82 08/22/25 10:20 20 08/22/25 10:20 20 08/22/25 10:19 90 99 08/22/25 10:16 88 119/66 08/22/25 10:15 20 08/22/25 10:15 36.5 C 20 08/22/25 10:14 76 100 08/22/25 10:10 94 H 18 117/64 08/22/25 10:09 78 118/56 L 100 08/22/25 10:07 122 H 146/74 H 08/22/25 10:05 18 08/22/25 10:05 18 08/22/25 10:04 72 151/72 H 100 08/22/25 10:03 136/68 08/22/25 10:01 84 139/71 08/22/25 09:59 91 H 98 08/22/25 09:58 109 H 134/84 08/22/25 09:56 83 129/76 08/22/25 09:55 102 H 136/71 08/22/25 09:54 98 H 99 08/22/25 09:52 100 H 132/82 08/22/25 09:50 85 141/92 H 08/22/25 09:49 84 97 08/22/25 09:44 74 99 08/22/25 09:43 82 94 08/22/25 09:39 89 97 08/22/25 09:34 75 99 08/22/25 09:30 18 08/22/25 09:30 18 08/22/25 09:29 65 100 08/22/25 09:24 65 99 08/22/25 08:21 86 141/87 H 08/22/25 08:17 36.5 C
[2025-08-22] MEDS: fentANYL 2 MCG/ML BUPIVacaine 0.125%-NSS 100ML BAG EPI PRN (14:02)
[2025-08-22] MEDS ORDERED: LIDOCAINE 2%/EPINEPHRINE 1:200,000 20 ML PF ONE (14:07)
--- NOTE | 2025-08-22 14:30 | Anesthesia Procedure Note ---
Date of Service August 22, 2025 Anesthesia Epidural Re-Dose Vital Signs Temp Pulse Resp BP Pulse Ox 36.9 C 95 H 18 123/78 97 08/22/25 13:00 08/22/25 14:29 08/22/25 13:30 08/22/25 14:26 08/22/25 14:29 Notes Pain Intensity: 1 Dilatation (cm): 5.5 Effacement (%): 50 Called by nursing to evaluate epidural as the patient is having increased pain. The epidural was re-dosed with the following medications (all medications via epidural route) after negative aspiration of the epidural catheter for CSF/HEME. 2% lidocaine 5ml with fentanyl 100mcg. After Epidural Re-Dose Mental Status: alert / awake / arousable Pain: improving with treatment Airway Patency, RR, SpO2: stable & adequate BP & HR: stable & adequate
--- NOTE | 2025-08-22 14:30 | Anesthesia Procedure Note ---
Date of Service August 22, 2025 Anesthesia Epidural Re-Dose Vital Signs Temp Pulse Resp BP Pulse Ox 36.9 C 96 H 18 123/78 97 08/22/25 13:00 08/22/25 14:26 08/22/25 13:30 08/22/25 14:26 08/22/25 14:24 Notes Pain Intensity: 1 Dilatation (cm): 5.5 Effacement (%): 50 Called by nursing to evaluate epidural as the patient is having increased pain. The epidural was re-dosed with the following medications (all medications via epidural route) after negative aspiration of the epidural catheter for CSF/HEME. 2% lidocaine 5ml with fentanyl 100mcg. After Epidural Re-Dose Mental Status: alert / awake / arousable Pain: improving with treatment Airway Patency, RR, SpO2: stable & adequate BP & HR: stable & adequate
[2025-08-22] MEDS ORDERED: HYDROCORTISONE ACETATE 25 MG SUPP PR PRN (15:27)
[2025-08-22] MEDS: LIDOCAINE 2%/EPINEPHRINE 1:200,000 20 ML PF EPI STA (15:35)
[2025-08-22] MEDS: BUPIVACAINE 0.25% PF 30 ML VIAL EPI STA (15:35)
[2025-08-22] MEDS: SODIUM CHLORIDE 0.9% PF INJ 10 ML VIAL EPI STA (15:35)
--- NOTE | 2025-08-22 15:36 | Delivery Summary ---
Vaginal Delivery Summary Date of Service August 22, 2025 Vaginal Delivery Summary Patient was found to be fully dilated and desired to push. She pushed with 2 contractions and delivered the head and then shoulders with minimal traction. Loose nuchal cord x1 reduced. The baby was handed off to the mother. The cord was clampedx2 and cut at 1 minute. The vagina and perineum were checked and found to have 1st degree hymenal laceration. It was repaired with 3/0 vicryl with figure of 8 suture. The placenta was delivered spontaneously as intact and complete. The uterus was explored and found to be empty. QBL was 100 ml. The fundus was firm. The baby was a viable female infant, Apgars 8/9, the weight is pending The mother and the baby tolerated the procedure well. No complications happened and I was present during whole procedure.
--- NOTE | 2025-08-22 18:13 | Anesthesia Procedure Note ---
Date of Service August 22, 2025 Anesthesia Post Epidural Note Vital Signs Vital Signs: Temp Pulse Resp BP Pulse Ox 36.9 C 131 H 18 127/79 99 08/22/25 13:00 08/22/25 17:17 08/22/25 17:17 08/22/25 17:17 08/22/25 15:19 Pain Intensity Right Hip: Pain Intensity: 8 Notes Mental Status: alert / awake / arousable Nausea / Vomiting: adequately controlled Pain: adequately controlled Airway Patency, RR, SpO2: stable & adequate BP & HR: stable & adequate Hydration State: stable & adequate Neuraxial Anesthesia: was administered and sensory block is resolving Anesthetic Complications: no major complications apparent and Pt Satisfied with anesthetic care Epidural: Removed without complications and With tip intact
[2025-08-22] MEDS: IBUPROFEN 600 MG TAB PO PRN (18:52)
[2025-08-22] MEDS ORDERED: ACETAMINOPHEN 325 MG TAB PO PRN (18:53)
[2025-08-22] MEDS ORDERED: IBUPROFEN 600 MG TAB PO PRN (18:53)
[2025-08-22] MEDS: BENZOCAINE 20% SPRY 85 APPLN/85 GM CAN EXT PRN (18:53)
[2025-08-22] MEDS: MEASLES, MUMPS & RUBELLA VIRUS VACCINE (MMR) 0.5ML VIAL SQ ONE (19:02)
[2025-08-22] MEDS: DIPHTHER/TETAN/PERTUS Vaccine (Tdap, Adol/Adult) 0.5mL IM ONE (19:02)
[2025-08-22] MEDS: BUTORPHANOL TARTRATE 1 MG/ML VIAL ONE (19:20)
[2025-08-22] MEDS ORDERED: TRANEXAMIC ACID 100 MG/ML 10 ML VIAL IV ONE (19:34)
[2025-08-22] MEDS: BUTORPHANOL TARTRATE 1 MG/ML VIAL IV ONE (19:40)
[2025-08-22] MEDS: NACL IV STA (19:40)
[2025-08-22] MEDS: TRANEXAMIC ACID IV STA (19:40)
[2025-08-22] MEDS: ACETAMINOPHEN 1,000 MG/100 ML VIAL IV STA (19:44)
[2025-08-22] MEDS ORDERED: SODIUM CHLORIDE 0.9% 100 ML IV PRN (20:01)
--- NOTE | 2025-08-22 20:07 | Obstetrical Progress Note ---
Date of Service August 22, 2025 Assessment & Plan Admission and Anticipated Discharge Date Admission Date: August 22, 2025 Subjective I was called at patient passed large clot while trying to go to the bathroom. It was read as 650 mL. When I came to the room her patient vital signs were stable she was just scared and crying. IV oxytocin bag was running as bolus. . We gave her mild 1 mg of IV Stadol and then manual exam was done by myself emptied of blood clots from uterine cavity. It was about 675 mL. We then took her to labor and delivery placed in dorsolithotomy position in the bed to attempt Norma intrauterine device. Meanwhile IV TXA and Tylenol were started, patient received another 1 mg dose of Stadol for pain. I attempt to go into the uterus to introduce Norma device, but unable to due to upper segment of the uterus was firm and contracted. I removed the Flor and tried manual exam into the uterus only small piece of clots came. No more clots nor bleeding. Uterus was firm and bleeding was minimal. Decision was made not to place Norma. I placed Hester catheter into the bladder to drain. And introduce 800 mcg of Cytotec into the rectum after verbal consent was obtained from the patient. 2 g of IV cefazolin was given. Will hold on IM Methergine due to patient's increased blood pressure, most likely from being anxious and crying. Will recheck blood pressure and start p.o. Methergine series. Continue to monitor closely. Results & Data Vital Signs (Past 12 Hours) Vital Signs Temp Pulse Pulse Resp BP BP Pulse Ox 08/22/25 19:58 100 08/22/25 19:58 80 08/22/25 17:50 36.8 C 92 H 18 138/89 96 08/22/25 17:17 131 H 18 127/79 08/22/25 17:17 131 H 127/79 08/22/25 17:02 116 H 130/77 08/22/25 16:48 117 H 119/57 L 08/22/25 16:47 117 H 119/57 L 08/22/25 16:33 90 119/75 08/22/25 16:18 87 132/87 08/22/25 16:03 98 H 20 135/59 L 08/22/25 16:03 98 H 135/59 L 08/22/25 15:48 89 20 129/63 08/22/25 15:48 89 129/63 08/22/25 15:33 85 18 134/72 08/22/25 15:33 85 134/72 08/22/25 15:19 102 H 99 08/22/25 15:17 102 H 20 99 08/22/25 15:17 103 H 119/68 08/22/25 15:14 101 H 100 08/22/25 15:09 114 H 98 08/22/25 15:04 136 H 99 08/22/25 15:00 131 H 132/97 08/22/25 14:59 127 H 99 08/22/25 14:56 115 H 136/83 08/22/25 14:54 103 H 96 08/22/25 14:52 106 H 134/77 08/22/25 14:49 106 H 98 08/22/25 14:45 93 H 124/69 08/22/25 14:44 95 H 97 08/22/25 14:40 102 H 126/68 08/22/25 14:39 97 H 98 08/22/25 14:35 96 H 126/67 08/22/25 14:34 89 97 08/22/25 14:30 88 18 121/60 08/22/25 14:29 95 H 97 08/22/25 14:26 96 H 123/78 08/22/25 14:24 101 H 97 08/22/25 14:20 108 H 126/72 08/22/25 14:19 98 08/22/25 14:19 100 H 08/22/25 14:19 102 H 118/83 08/22/25 14:15 100 H 116/77 08/22/25 14:14 97 H 100 08/22/25 14:12 95 H 126/76 08/22/25 14:09 92 H 121/75 99 08/22/25 14:04 101 H 100 08/22/25 14:00 18 08/22/25 14:00 18 08/22/25 13:59 91 H 96 08/22/25 13:54 99 08/22/25 13:54 91 H 08/22/25 13:54 100 H 136/89 08/22/25 13:49 81 97 08/22/25 13:47 81 94 08/22/25 13:44 88 97 08/22/25 13:39 102 H 132/94 97 08/22/25 13:34 101 H 99 08/22/25 13:30 18 08/22/25 13:30 18 08/22/25 13:29 97 H 99 08/22/25 13:24 90 124/87 99 08/22/25 13:19 106 H 99 08/22/25 13:14 81 98 08/22/25 13:11 85 130/90 08/22/25 13:09 85 99 08/22/25 13:04 90 99 08/22/25 13:00 18 08/22/25 13:00 36.9 C 18 08/22/25 12:59 90 100 08/22/25 12:54 82 143/83 H 99 08/22/25 12:49 89 99 08/22/25 12:44 80 99 08/22/25 12:39 82 99 08/22/25 12:34 93 H 99 08/22/25 12:29 124 H 99 08/22/25 12:26 78 163/84 H 08/22/25 12:24 79 99 08/22/25 12:19 91 H 100 08/22/25 12:14 73 99 08/22/25 12:09 100 08/22/25 12:09 70 08/22/25 12:09 70 149/89 H 08/22/25 12:04 69 100 08/22/25 12:00 20 08/22/25 12:00 20 08/22/25 11:59 90 99 08/22/25 11:54 87 142/89 H 100 08/22/25 11:49 75 99 08/22/25 11:45 78 145/87 H 08/22/25 11:44 84 100 08/22/25 11:39 80 100 08/22/25 11:37 36.7 C 77 135/70 08/22/25 11:35 78 133/77 08/22/25 11:34 84 99 08/22/25 11:33 78 126/82 08/22/25 11:31 86 130/83 08/22/25 11:30 20 08/22/25 11:30 20 08/22/25 11:29 80 130/86 100 08/22/25 11:27 76 144/96 H 08/22/25 11:24 74 99 08/22/25 11:19 71 100 08/22/25 11:14 81 99 08/22/25 11:13 78 134/88 08/22/25 11:09 77 100 08/22/25 11:04 65 99 08/22/25 11:00 18 08/22/25 11:00 18 08/22/25 10:59 97 08/22/25 10:59 73 08/22/25 10:59 72 141/92 H 08/22/25 10:54 68 98 08/22/25 10:49 73 99 08/22/25 10:44 79 99 08/22/25 10:43 77 137/82 08/22/25 10:39 75 99 08/22/25 10:34 66 100 08/22/25 10:30 18 08/22/25 10:30 18 08/22/25 10:29 69 99 08/22/25 10:28 80 123/76 08/22/25 10:27 78 149/79 H 08/22/25 10:24 81 100 08/22/25 10:22 72 132/82 08/22/25 10:20 20 08/22/25 10:20 20 08/22/25 10:19 90 99 08/22/25 10:16 88 119/66 08/22/25 10:15 20 08/22/25 10:15 36.5 C 20 08/22/25 10:14 76 100 08/22/25 10:10 94 H 18 117/64 08/22/25 10:09 78 118/56 L 100 08/22/25 10:07 122 H 146/74 H 08/22/25 10:05 18 08/22/25 10:05 18 08/22/25 10:04 72 151/72 H 100 08/22/25 10:03 136/68 08/22/25 10:01 84 139/71 08/22/25 09:59 91 H 98 08/22/25 09:58 109 H 134/84 08/22/25 09:56 83 129/76 08/22/25 09:55 102 H 136/71 08/22/25 09:54 98 H 99 08/22/25 09:52 100 H 132/82 08/22/25 09:50 85 141/92 H 08/22/25 09:49 84 97 08/22/25 09:44 74 99 08/22/25 09:43 82 94 08/22/25 09:39 89 97 08/22/25 09:34 75 99 08/22/25 09:30 18 08/22/25 09:30 18 08/22/25 09:29 65 100 08/22/25 09:24 65 99 08/22/25 08:21 86 141/87 H 08/22/25 08:17 36.5 C O2 Del Method 08/22/25 19:58 08/22/25 19:58 08/22/25 17:50 Room Air 08/22/25 17:17 08/22/25 17:17 08/22/25 17:02 08/22/25 16:48 08/22/25 16:47 08/22/25 16:33 08/22/25 16:18 08/22/25 16:03 08/22/25 16:03 08/22/25 15:48 08/22/25 15:48 08/22/25 15:33 08/22/25 15:33 08/22/25 15:19 08/22/25 15:17 08/22/25 15:17 08/22/25 15:14 08/22/25 15:09 08/22/25 15:04 08/22/25 15:00 08/22/25 14:59 08/22/25 14:56 08/22/25 14:54 08/22/25 14:52 08/22/25 14:49 08/22/25 14:45 08/22/25 14:44 08/22/25 14:40 08/22/25 14:39 08/22/25 14:35 08/22/25 14:34 08/22/25 14:30 08/22/25 14:29 08/22/25 14:26 08/22/25 14:24 08/22/25 14:20 08/22/25 14:19 08/22/25 14:19 08/22/25 14:19 08/22/25 14:15 08/22/25 14:14 08/22/25 14:12 08/22/25 14:09 08/22/25 14:04 08/22/25 14:00 08/22/25 14:00 08/22/25 13:59 08/22/25 13:54 08/22/25 13:54 08/22/25 13:54 08/22/25 13:49 08/22/25 13:47 08/22/25 13:44 08/22/25 13:39 08/22/25 13:34 08/22/25 13:30 08/22/25 13:30 08/22/25 13:29 08/22/25 13:24 08/22/25 13:19 08/22/25 13:14 08/22/25 13:11 08/22/25 13:09 08/22/25 13:04 08/22/25 13:00 08/22/25 13:00 08/22/25 12:59 08/22/25 12:54 08/22/25 12:49 08/22/25 12:44 08/22/25 12:39 08/22/25 12:34 08/22/25 12:29 08/22/25 12:26 08/22/25 12:24 08/22/25 12:19 08/22/25 12:14 08/22/25 12:09 08/22/25 12:09 08/22/25 12:09 08/22/25 12:04 08/22/25 12:00 08/22/25 12:00 08/22/25 11:59 08/22/25 11:54 08/22/25 11:49 08/22/25 11:45 08/22/25 11:44 08/22/25 11:39 08/22/25 11:37 08/22/25 11:35 08/22/25 11:34 08/22/25 11:33 08/22/25 11:31 08/22/25 11:30 08/22/25 11:30 08/22/25 11:29 08/22/25 11:27 08/22/25 11:24 08/22/25 11:19 08/22/25 11:14 08/22/25 11:13 08/22/25 11:09 08/22/25 11:04 08/22/25 11:00 08/22/25 11:00 08/22/25 10:59 08/22/25 10:59 08/22/25 10:59 08/22/25 10:54 08/22/25 10:49 08/22/25 10:44 08/22/25 10:43 08/22/25 10:39 08/22/25 10:34 08/22/25 10:30 08/22/25 10:30 08/22/25 10:29 08/22/25 10:28 08/22/25 10:27 08/22/25 10:24 08/22/25 10:22 08/22/25 10:20 08/22/25 10:20 08/22/25 10:19 08/22/25 10:16 08/22/25 10:15 08/22/25 10:15 08/22/25 10:14 08/22/25 10:10 08/22/25 10:09 08/22/25 10:07 08/22/25 10:05 08/22/25 10:05 08/22/25 10:04 08/22/25 10:03 08/22/25 10:01 08/22/25 09:59 08/22/25 09:58 08/22/25 09:56 08/22/25 09:55 08/22/25 09:54 08/22/25 09:52 08/22/25 09:50 08/22/25 09:49 08/22/25 09:44 08/22/25 09:43 08/22/25 09:39 08/22/25 09:34 08/22/25 09:30 08/22/25 09:30 08/22/25 09:29 08/22/25 09:24 08/22/25 08:21 08/22/25 08:17
[2025-08-22] MEDS: OXYTOCIN 20 UNITS/1002ML LR IV ONE (20:30)
[2025-08-22 21:08] LABS: Hematocrit (blood only) 33.6 % (37.0-47.0); Hemoglobin 11.5 g/dl (12.0-16.0); Immature Granulocytes # (auto) 0.15 K/uL (0.01-0.20); Immature Granulocytes % (auto) 1.0 %; Mean Corpuscular Hemoglobin 30.7 pg (25.0-34.0); Mean Corpuscular Volume 89.8 fL (80.0-100.0); Platelet Count 228 K/uL (130-400); RDW Standard Deviation 44.3 fL (36.4-46.3); Red Blood Count 3.74 M/uL (4.20-5.40); White Blood Count 14.33 K/ul (4.8-10.8)
[2025-08-22 21:29] LABS: INR 1.0 (0.9-1.1); Partial Thromboplastin Time 27 Seconds (21-31); Prothrombin Time 10.5 Seconds (9.0-12.0)
[2025-08-22 21:31] LABS: Fibrinogen 512 mg/dl (184-400)
--- NOTE | 2025-08-22 21:50 | Obstetrical Progress Note ---
Date of Service August 22, 2025 Assessment & Plan Admission and Anticipated Discharge Date Admission Date: August 22, 2025 Subjective Patient is reevaluated. She feels much better. Minimal pain no bleeding. She denies dizziness or lightheadedness. She is sitting and smiling looking at her phone, Vital signs stable afebrile, Abdomen soft nontender, fundus firm, lochia rubra is dark and minimal, Hester is draining clear urine but little dark, H&H is stable and coags are within normal limits Lab Results 08/22/25 08/22/25 Range/Units 08:50 20:33 WBC 10.13 14.33 H (4.8-10.8) K/ul RBC 4.32 3.74 L (4.20-5.40) M/uL Hgb 13.5 11.5 L (12.0-16.0) g/dl Hct 38.3 33.6 L (37.0-47.0) % MCV 88.7 89.8 (80.0-100.0) fL MCH 31.3 30.7 (25.0-34.0) pg MCHC 35.2 34.2 (32.0-36.0) g/dL RDW Std Deviation 43.5 44.3 (36.4-46.3) fL RDW Coeff of Laure 13.3 13.5 (11.5-14.5) % Plt Count 219 228 (130-400) K/uL MPV 10.2 10.3 (9.4-12.4) fL Immature Gran % (Auto) 1.0 % Neut % (Auto) 71.1 % Lymph % (Auto) 21.3 % [place] % (Auto) 5.9 % Eos % (Auto) 0.3 % Baso % (Auto) 0.4 % Neut # (Auto) 10.17 H (1.40-6.50) K/uL Lymph # (Auto) 3.05 (1.20-3.40) K/uL [place] # (Auto) 0.85 H (0.11-0.59) K/uL Eos # (Auto) 0.05 (0.00-0.50) K/uL Baso # (Auto) 0.06 (0.00-0.20) K/uL Immature Gran # (Auto) 0.15 (0.01-0.20) K/uL PT 10.5 (9.0-12.0) Seconds INR 1.0 (0.9-1.1) APTT 27 (21-31) Seconds PTT Ratio 1.0 Fibrinogen 512 H (184-400) mg/dl Sodium 136 (136-145) mmol/L Potassium 3.7 (3.5-5.1) mmol/L Chloride 108 H (98-107) mmol/L Carbon Dioxide 18 L (21-32) mmol/L Anion Gap 10 (3-11) BUN 6 (6-23) mg/dl Creatinine 0.55 L (0.6-1.2) mg/dl Est Cr Clr Drug Dosing 199.2 ml/min eGFR 125.60 BUN/Creatinine Ratio 10.9 (10-20) Glucose 93 (70-99(Fasting)) mg/dl Calcium 8.7 (8.6-10.3) mg/dl Total Bilirubin 0.4 (0.2-1.0) mg/dl AST 29 (13-39) U/L ALT 52 (7-52) U/L Alkaline Phosphatase 171 H (34-104) U/L Total Protein 6.3 (6.0-8.3) gm/dl Albumin 3.2 L (3.4-5.0) gm/dl Globulin 3.1 (2.5-4.0) gm/dl Albumin/Globulin Ratio 1.0 (0.9-2) Treponema pallidum Ab Negative (Negative) Blood Type O Positive Antibody Screen NEGATIVE Continue to monitor closely, Continue with IV Pitocin and start p.o. Methergine series, Results & Data Vital Signs (Past 12 Hours) Vital Signs Temp Pulse Pulse Resp BP BP Pulse Ox 08/22/25 21:43 100 08/22/25 21:43 77 08/22/25 21:38 99 08/22/25 21:38 82 08/22/25 21:33 99 08/22/25 21:33 86 08/22/25 21:28 99 08/22/25 21:28 74 08/22/25 21:23 97 08/22/25 21:23 69 08/22/25 21:18 95 08/22/25 21:18 66 08/22/25 21:13 96 08/22/25 21:13 69 08/22/25 21:08 100 08/22/25 21:08 79 08/22/25 21:03 97 08/22/25 21:03 73 08/22/25 20:58 95 08/22/25 20:58 82 08/22/25 20:53 96 08/22/25 20:53 71 08/22/25 20:48 95 08/22/25 20:48 67 08/22/25 20:46 86 L 08/22/25 20:46 71 08/22/25 20:43 98 08/22/25 20:43 68 08/22/25 20:38 96 08/22/25 20:38 70 08/22/25 20:33 97 08/22/25 20:33 84 08/22/25 20:32 84 L 08/22/25 20:32 79 08/22/25 20:32 135/83 08/22/25 20:28 86 L 08/22/25 20:28 73 08/22/25 20:26 93 08/22/25 20:26 78 08/22/25 20:23 100 08/22/25 20:23 73 08/22/25 20:18 100 08/22/25 20:18 81 08/22/25 20:17 78 08/22/25 20:17 135/82 08/22/25 20:13 100 08/22/25 20:13 72 08/22/25 20:08 100 08/22/25 20:08 86 08/22/25 20:08 97 H 08/22/25 20:08 133/96 08/22/25 20:03 98 08/22/25 20:03 96 H 08/22/25 20:02 108 H 08/22/25 20:02 135/92 08/22/25 19:58 100 08/22/25 19:58 80 08/22/25 17:50 36.8 C 92 H 18 138/89 96 08/22/25 17:17 131 H 18 127/79 08/22/25 17:17 131 H 127/79 08/22/25 17:02 116 H 130/77 08/22/25 16:48 117 H 119/57 L 08/22/25 16:47 117 H 119/57 L 10/10/25 16:33 90 119/75 08/22/25 16:18 87 132/87 08/22/25 16:03 98 H 20 135/59 L 08/22/25 16:03 98 H 135/59 L 08/22/25 15:48 89 20 129/63 08/22/25 15:48 89 129/63 08/22/25 15:33 85 18 134/72 08/22/25 15:33 85 134/72 08/22/25 15:19 102 H 99 08/22/25 15:17 102 H 20 99 08/22/25 15:17 103 H 119/68 08/22/25 15:14 101 H 100 08/22/25 15:09 114 H 98 08/22/25 15:04 136 H 99 08/22/25 15:00 131 H 132/97 08/22/25 14:59 127 H 99 08/22/25 14:56 115 H 136/83 08/22/25 14:54 103 H 96 08/22/25 14:52 106 H 134/77 08/22/25 14:49 106 H 98 08/22/25 14:45 93 H 124/69 08/22/25 14:44 95 H 97 08/22/25 14:40 102 H 126/68 08/22/25 14:39 97 H 98 08/22/25 14:35 96 H 126/67 08/22/25 14:34 89 97 08/22/25 14:30 88 18 121/60 08/22/25 14:29 95 H 97 08/22/25 14:26 96 H 123/78 08/22/25 14:24 101 H 97 08/22/25 14:20 108 H 126/72 08/22/25 14:19 98 08/22/25 14:19 100 H 08/22/25 14:19 102 H 118/83 08/22/25 14:15 100 H 116/77 08/22/25 14:14 97 H 100 08/22/25 14:12 95 H 126/76 08/22/25 14:09 92 H 121/75 99 08/22/25 14:04 101 H 100 08/22/25 14:00 18 08/22/25 14:00 18 08/22/25 13:59 91 H 96 08/22/25 13:54 99 08/22/25 13:54 91 H 08/22/25 13:54 100 H 136/89 08/22/25 13:49 81 97 08/22/25 13:47 81 94 08/22/25 13:44 88 97 08/22/25 13:39 102 H 132/94 97 08/22/25 13:34 101 H 99 08/22/25 13:30 18 08/22/25 13:30 18 08/22/25 13:29 97 H 99 08/22/25 13:24 90 124/87 99 08/22/25 13:19 106 H 99 08/22/25 13:14 81 98 08/22/25 13:11 85 130/90 08/22/25 13:09 85 99 08/22/25 13:04 90 99 08/22/25 13:00 18 08/22/25 13:00 36.9 C 18 08/22/25 12:59 90 100 08/22/25 12:54 82 143/83 H 99 08/22/25 12:49 89 99 08/22/25 12:44 80 99 08/22/25 12:39 82 99 08/22/25 12:34 93 H 99 08/22/25 12:29 124 H 99 08/22/25 12:26 78 163/84 H 08/22/25 12:24 79 99 08/22/25 12:19 91 H 100 08/22/25 12:14 73 99 08/22/25 12:09 100 08/22/25 12:09 70 08/22/25 12:09 70 149/89 H 08/22/25 12:04 69 100 08/22/25 12:00 20 08/22/25 12:00 20 08/22/25 11:59 90 99 08/22/25 11:54 87 142/89 H 100 08/22/25 11:49 75 99 08/22/25 11:45 78 145/87 H 08/22/25 11:44 84 100 08/22/25 11:39 80 100 08/22/25 11:37 36.7 C 77 135/70 08/22/25 11:35 78 133/77 08/22/25 11:34 84 99 08/22/25 11:33 78 126/82 08/22/25 11:31 86 130/83 08/22/25 11:30 20 08/22/25 11:30 20 08/22/25 11:29 80 130/86 100 08/22/25 11:27 76 144/96 H 08/22/25 11:24 74 99 08/22/25 11:19 71 100 08/22/25 11:14 81 99 08/22/25 11:13 78 134/88 08/22/25 11:09 77 100 08/22/25 11:04 65 99 08/22/25 11:00 18 08/22/25 11:00 18 08/22/25 10:59 97 08/22/25 10:59 73 08/22/25 10:59 72 141/92 H 08/22/25 10:54 68 98 08/22/25 10:49 73 99 08/22/25 10:44 79 99 08/22/25 10:43 77 137/82 08/22/25 10:39 75 99 08/22/25 10:34 66 100 08/22/25 10:30 18 08/22/25 10:30 18 08/22/25 10:29 69 99 08/22/25 10:28 80 123/76 08/22/25 10:27 78 149/79 H 08/22/25 10:24 81 100 08/22/25 10:22 72 132/82 08/22/25 10:20 20 08/22/25 10:20 20 08/22/25 10:19 90 99 08/22/25 10:16 88 119/66 08/22/25 10:15 20 08/22/25 10:15 36.5 C 20 08/22/25 10:14 76 100 08/22/25 10:10 94 H 18 117/64 08/22/25 10:09 78 118/56 L 100 08/22/25 10:07 122 H 146/74 H 08/22/25 10:05 18 08/22/25 10:05 18 08/22/25 10:04 72 151/72 H 100 08/22/25 10:03 136/68 08/22/25 10:01 84 139/71 08/22/25 09:59 91 H 98 08/22/25 09:58 109 H 134/84 08/22/25 09:56 83 129/76 08/22/25 09:55 102 H 136/71 08/22/25 09:54 98 H 99 08/22/25 09:52 100 H 132/82 08/22/25 09:50 85 141/92 H 08/22/25 09:49 84 97 O2 Del Method 08/22/25 21:43 08/22/25 21:43 08/22/25 21:38 08/22/25 21:38 08/22/25 21:33 08/22/25 21:33 08/22/25 21:28 08/22/25 21:28 08/22/25 21:23 08/22/25 21:23 08/22/25 21:18 08/22/25 21:18 08/22/25 21:13 08/22/25 21:13 08/22/25 21:08 08/22/25 21:08 08/22/25 21:03 08/22/25 21:03 08/22/25 20:58 08/22/25 20:58 08/22/25 20:53 08/22/25 20:53 08/22/25 20:48 08/22/25 20:48 08/22/25 20:46 08/22/25 20:46 08/22/25 20:43 08/22/25 20:43 08/22/25 20:38 08/22/25 20:38 08/22/25 20:33 08/22/25 20:33 08/22/25 20:32 08/22/25 20:32 08/22/25 20:32 08/22/25 20:28 08/22/25 20:28 08/22/25 20:26 08/22/25 20:26 08/22/25 20:23 08/22/25 20:23 08/22/25 20:18 08/22/25 20:18 08/22/25 20:17 08/22/25 20:17 08/22/25 20:13 08/22/25 20:13 08/22/25 20:08 08/22/25 20:08 08/22/25 20:08 08/22/25 20:08 08/22/25 20:03 08/22/25 20:03 08/22/25 20:02 08/22/25 20:02 08/22/25 19:58 08/22/25 19:58 08/22/25 17:50 Room Air 08/22/25 17:17 08/22/25 17:17 08/22/25 17:02 08/22/25 16:48 08/22/25 16:47 08/22/25 16:33 08/22/25 16:18 08/22/25 16:03 08/22/25 16:03 08/22/25 15:48 08/22/25 15:48 08/22/25 15:33 08/22/25 15:33 08/22/25 15:19 08/22/25 15:17 08/22/25 15:17 08/22/25 15:14 08/22/25 15:09 08/22/25 15:04 08/22/25 15:00 08/22/25 14:59 08/22/25 14:56 08/22/25 14:54 08/22/25 14:52 08/22/25 14:49 08/22/25 14:45 08/22/25 14:44 08/22/25 14:40 08/22/25 14:39 08/22/25 14:35 08/22/25 14:34 08/22/25 14:30 08/22/25 14:29 08/22/25 14:26 08/22/25 14:24 08/22/25 14:20 08/22/25 14:19 08/22/25 14:19 08/22/25 14:19 08/22/25 14:15 08/22/25 14:14 08/22/25 14:12 08/22/25 14:09 08/22/25 14:04 08/22/25 14:00 08/22/25 14:00 08/22/25 13:59 08/22/25 13:54 08/22/25 13:54 08/22/25 13:54 08/22/25 13:49 08/22/25 13:47 08/22/25 13:44 08/22/25 13:39 08/22/25 13:34 08/22/25 13:30 08/22/25 13:30 08/22/25 13:29 08/22/25 13:24 08/22/25 13:19 08/22/25 13:14 08/22/25 13:11 08/22/25 13:09 08/22/25 13:04 08/22/25 13:00 08/22/25 13:00 08/22/25 12:59 08/22/25 12:54 08/22/25 12:49 08/22/25 12:44 08/22/25 12:39 08/22/25 12:34 08/22/25 12:29 08/22/25 12:26 08/22/25 12:24 08/22/25 12:19 08/22/25 12:14 08/22/25 12:09 08/22/25 12:09 08/22/25 12:09 08/22/25 12:04 08/22/25 12:00 08/22/25 12:00 08/22/25 11:59 08/22/25 11:54 08/22/25 11:49 08/22/25 11:45 08/22/25 11:44 08/22/25 11:39 08/22/25 11:37 08/22/25 11:35 08/22/25 11:34 08/22/25 11:33 08/22/25 11:31 08/22/25 11:30 08/22/25 11:30 08/22/25 11:29 08/22/25 11:27 08/22/25 11:24 08/22/25 11:19 08/22/25 11:14 08/22/25 11:13 08/22/25 11:09 08/22/25 11:04 08/22/25 11:00 08/22/25 11:00 08/22/25 10:59 08/22/25 10:59 08/22/25 10:59 08/22/25 10:54 08/22/25 10:49 08/22/25 10:44 08/22/25 10:43 08/22/25 10:39 08/22/25 10:34 08/22/25 10:30 08/22/25 10:30 08/22/25 10:29 08/22/25 10:28 08/22/25 10:27 08/22/25 10:24 08/22/25 10:22 08/22/25 10:20 08/22/25 10:20 08/22/25 10:19 08/22/25 10:16 08/22/25 10:15 08/22/25 10:15 08/22/25 10:14 08/22/25 10:10 08/22/25 10:09 08/22/25 10:07 08/22/25 10:05 08/22/25 10:05 08/22/25 10:04 08/22/25 10:03 08/22/25 10:01 08/22/25 09:59 08/22/25 09:58 08/22/25 09:56 08/22/25 09:55 08/22/25 09:54 08/22/25 09:52 08/22/25 09:50 08/22/25 09:49
[2025-08-22] MEDS: METHYLERGONOVINE MALEATE 0.2 MG/ML AMP IM STA (22:04)
[2025-08-22] MEDS: OXYTOCIN 20 UNITS/LR 1,002 ML IV SCH (22:22)
[2025-08-22] MEDS: METHYLERGONOVINE MALEATE 0.2 MG TAB PO SCH (22:29)
[2025-08-22] MEDS: ACETAMINOPHEN 325 MG TAB PO PRN (22:30)
[2025-08-22] MEDS: DOCUSATE SODIUM 100 MG CAP PO SCH (22:30)
[2025-08-23] MEDS ORDERED: PRENATAL VITAMIN 1 TAB PO SCH (08:00)
[2025-08-23 08:06] LABS: Hematocrit (blood only) 32.3 % (37.0-47.0); Hemoglobin 10.9 g/dl (12.0-16.0); Mean Corpuscular Hemoglobin 30.2 pg (25.0-34.0); Mean Corpuscular Volume 89.5 fL (80.0-100.0); Platelet Count 192 K/uL (130-400); RDW Standard Deviation 44.7 fL (36.4-46.3); Red Blood Count 3.61 M/uL (4.20-5.40); White Blood Count 12.69 K/ul (4.8-10.8)
[2025-08-23 08:27] LABS: INR 1.0 (0.9-1.1); Partial Thromboplastin Time 28 Seconds (21-31); Prothrombin Time 10.1 Seconds (9.0-12.0)
[2025-08-23 08:30] LABS: Fibrinogen 479 mg/dl (184-400)
[2025-08-23] MEDS: FERROUS SULFATE 325 MG TAB PO SCH (09:08)
[2025-08-23] MEDS: PRENATAL VITAMIN 1 TAB PO SCH (09:08)
--- NOTE | 2025-08-23 11:03 | Obstetrical Progress Note ---
Date of Service August 23, 2025 Assessment & Plan (1) hemorrhage: Pt doing well stable vitals Minimal bleeding Subjective Ambulation: ambulating normally Voiding: no voiding problems Passing Gas:: Yes Diet Tolerance:: regular diet Lochia:: Small Feeding Type:: breast feeding Review of Systems All systems reviewed & are unremarkable except as noted in HPI & below Physical Exam Constitutional WD/WN, vitals as above well developed and well nourished Eyes PERRL, conjunctivae normal, anicteric sclerae Neck trachea midline, no thyromegaly Respiratory normal respiratory effort, lungs clear to auscultation Auscultation: no crackles, no rales and no wheezes Cardiovascular RRR, no murmur, no edema Gastrointestinal (Abdomen) normal bowel sounds, soft, nontender, no hepatosplenomegaly Uterus is below umbilicus Musculoskeletal no cyanosis or clubbing, extremities motor strength 5/5 Skin no rashes, warm and dry Neurologic patellar DTR's 2+ bilat, sensation intact Psychiatric A+Ox3, euthymic affect Genitourinary normal external appearance Results & Data Vital Signs (Past 12 Hours) Vital Signs Temp Pulse Pulse Resp BP Pulse Ox O2 Del Method 08/23/25 02:16 36.9 C 76 16 143/99 H 97 Room Air 08/22/25 23:40 36.8 C 73 18 138/88 98 Room Air 08/22/25 23:13 98 08/22/25 23:13 75 08/22/25 23:08 98 08/22/25 23:08 82 08/22/25 23:03 99 08/22/25 23:03 92 H
[2025-08-23 16:21] VITALS: RESP 18
[2025-08-23] MEDS: METHYLERGONOVINE MALEATE 0.2 MG TAB PO ONE (16:22)
[2025-08-24 07:20] LABS: Hematocrit (blood only) 31.6 % (37.0-47.0); Hemoglobin 10.2 g/dl (12.0-16.0)
[2025-08-24 10:32] VITALS: BP 126/85; TEMP 98.1; O2SAT 99
[2025-08-24 10:39] VITALS: PULSE 76
--- NOTE | 2025-08-24 21:09 | Obstetrical Progress Note ---
Date of Service August 24, 2025 Assessment & Plan (1) hemorrhage: Late note entry: Post day #2 Vaginal delivery PPH Pt doing well No complaints Stable vitals Stable labs. H/H: Tolerating PO food and med Pt wishes to be discharged home Subjective Ambulation: ambulating normally Voiding: no voiding problems Passing Gas:: Yes Diet Tolerance:: regular diet Lochia:: Small Feeding Type:: breast feeding Review of Systems All systems reviewed & are unremarkable except as noted in HPI & below Physical Exam Constitutional WD/WN, vitals as above well developed and well nourished Eyes PERRL, conjunctivae normal, anicteric sclerae Neck trachea midline, no thyromegaly Respiratory normal respiratory effort, lungs clear to auscultation Auscultation: no crackles, no rales and no wheezes Cardiovascular RRR, no murmur, no edema Gastrointestinal (Abdomen) normal bowel sounds, soft, nontender, no hepatosplenomegaly Uterus is below umbilicus Musculoskeletal no cyanosis or clubbing, extremities motor strength 5/5 Skin no rashes, warm and dry Neurologic patellar DTR's 2+ bilat, sensation intact Psychiatric A+Ox3, euthymic affect Genitourinary normal external appearance Results & Data Vital Signs (Past 12 Hours) Vital Signs Temp Pulse Pulse Resp BP Pulse Ox 08/24/25 10:37 36.7 C 77 76 18 126/85 99
== END 2025-08-24 13:50 | disposition home or self-care (01) | DRG 768 ==
LOC: OPB 08:07 → 4S1 08:10 → 4E2 17:35 → 4S1 19:53 → 4E2 08-23